=== PATIENT | female | born 1950 | race Caucasian/White ===

== ENCOUNTER 2019-09-12 21:00 | Inpatient (IN) ==
--- NOTE | 2019-09-12 20:18 | PROVIDER DOCUMENTATION ---
HPI-General Adult - General Stated Complaint: Diarrhea,SOB,lethargic Time Seen by Provider: 09/12/19 19:45 Source: patient Allergies/Adverse Reactions: Patient Allergies Allergy/AdvReac Type Severity Reaction Status Date / Time No Known Allergies Allergy Verified 09/12/19 20:58 Home Medications: Home Medication List Medication Instructions Recorded Confirmed Last Taken Type Amlodipine Besylate 10 mg PO DAILY 02/02/17 09/13/19 09/11/19 History Clonidine HCl 0.1 mg PO BID 02/02/17 09/13/19 09/11/19 History Glimepiride 4 mg PO DAILY 02/02/17 09/13/19 09/11/19 History Losartan [Cozaar] 50 mg PO DAILY 02/02/17 09/13/19 09/11/19 History Pioglitazone [Actos] 30 mg PO DAILY 02/02/17 09/13/19 09/11/19 History Spironolactone 25 mg PO BID 02/02/17 09/13/19 09/11/19 History Glucosa Rodriguez 2Kcl/Chondroitin Rodriguez 1 cap PO DAILY 09/23/18 09/13/19 09/11/19 History [Glucosamine & Chondroitin Cap] Carvedilol [Coreg] 12.5 mg PO BID 30 Days #60 tab 09/28/18 09/13/19 09/11/19 Rx Folic Acid 1 mg PO BID 30 Days #60 tab 09/28/18 09/13/19 09/11/19 Rx Levothyroxine [Synthroid] 75 microgm PO DAILY@0700 30 Days 09/28/18 09/13/19 09/11/19 Rx #30 tab Nystatin Powder [Mycostatin Powder] 1 applicatn TOP BID 30 Days #1 09/28/18 09/13/19 09/11/19 Rx bottle Bumetanide 2 mg PO DAILY 09/13/19 09/13/19 Unknown History Warfarin [Coumadin] 5 mg PO QHS 09/13/19 09/13/19 Unknown History Cephalexin [Keflex] 500 mg PO BID #10 cap 09/18/19 Unknown Rx - History of Present Illness -Gen Adult Nature of Presenting Problems: 69 YOF PRESENTS WITH C/O GENERALIZED WEAKNESS, DIARRHEA, INCREASED SOB SINCE THE DAY BEFORE . SHE DENIES FEVER, CHILLS, VOMITING. Location of Pain/Injury: reports: none Pain Radiation: reports: no radiation Quality of Pain: reports: none Severity: reports: moderate Onset/Duration: reports: 1 week ago, other (SINCE 09/05) Timing: reports: still present Context/Activities at Onset: reports: none Modifying Factors: improves with: nothing Associated Symptoms: reports: diarrhea, loss of appetite, malaise, nausea Similar Symptoms Previously?: No Recently seen or treated by another doctor?: No Review of Systems - Adult - REVIEW OF SYSTEMS - ADULT Constitutional: reports: no symptoms reported. denies: see HPI, chills, fever, fatique, night sweats, weight gain, weight loss, other Eyes: reports: no symptoms reported. denies: see HPI, discharge, dry eyes, decreased vision, blurred vision, double vision, eye pain, redness, other Ears, Nose, Mouth & Throat: reports: no symptoms reported. denies: see HPI, ear discharge, ear pain, hearing loss, tinnitus, epistaxis, sinus problem, nose pain, loose teeth, mouth/dental pain, mouth swelling, hoarseness, throat pain, throat swelling, other Cardiovascular: reports: no symptoms reported. denies: see HPI, chest pain, edema, heart murmur, irregular heart rate, orthopnea, palpitations, poor circulation, PND, syncope, other Respiratory: reports: cough, shortness of breath, wheezing. denies: no symptoms reported, see HPI, chronic cough, dyspnea on exertion, excessive sputum production, hemoptysis, pleurisy, other Gastrointestinal: reports: diarrhea, nausea. denies: no symptoms reported, see HPI, abdominal pain, hematemesis, constipation, difficulty swallowing, frequent heartburn, poor appetite, rectal bleeding, vomiting, other Genitourinary: reports: no symptoms reported. denies: see HPI, dysuria, discharge, frequency, flank pain, frequent UTI's, hematuria, hesitency, incontinence, urinary retention, urgency, other Musculoskeletal: reports: muscle weakness. denies: no symptoms reported, see HPI, bone pain, back pain, frequent leg cramps, joint pain, joint swelling, muscle aches, neck pain, other Integumentary: reports: no symptoms reported. denies: see HPI, hives, hair loss, itching, mole changes, nail changes, rash, skin sores/ulcer, skin thickening, other Neurological: reports: no symptoms reported. denies: see HPI, ataxia, dizziness/vertigo, headache/migraines, loss of balance, numbness, paresthesia, seizure, slurred speech, syncope, tremors, other Psychiatric: reports: no symptoms reported. denies: see HPI, anxiety, anti- depressant use, alcohol/drug dependence, depression, emotional problems, insomnia, panic attacks, suicidal thoughts, other Endocrine: reports: no symptoms reported. denies: see HPI, change in skin pigment, excessive sweating, goiter, cold intolerance, heat intolerance, increased hunger, increased thirst, polyuria, other Hematologic/Lymphatic: reports: no symptoms reported. denies: see HPI, blood clots, easy bruising, low blood count, lymphedema, prolonged bleeding, swollen lymph nodes, transfusions, other Allergic/Immunologic: reports: no symptoms reported. denies: see HPI, allergic reactions, allergic rhinitis, asthma, eczema, food allergy, frequent infections, hay fever, hives, positive PPD, urticaria, other Past History - Adult - PAST MEDICAL HISTORY-ADULT Review of Records: reports: Social history reviewed & non-contributory. Major Childhood Illnesses: reports: denies history Cardiovascular: reports: CHF, HTN Respiratory: reports: denies history Gastrointestinal: reports: denies history Obstetrical/Gynecological: reports: denies history Genitourinary: reports: denies history Musculoskeletal: reports: denies history Neurological: reports: CVA Endocrine/Immune: reports: Diabetes, thyroid disorder Other Conditions: reports: denies history - PRIOR SURGERIES/PROCEDURES Surgical/Procedure History: reports: reviewed, not pertinent - IMMUNIZATION STATUS Childhood Immunizations: See Nurse Assessment Flu Vaccine: See Nurse Assessment - FAMILY HISTORY Family History: reviewed, not pertinent Physical Exam-General - PHYSICAL EXAM-ADULT Initial Vital Signs Reviewed: Yes - CONSTITUTIONAL General Appearance: alert, no apparent distress - EYES Eyes: PERRL/EOMI, pink conjunctivae - HEAD, EARS, NOSE, MOUTH & THROAT HENMT: normocephalic/atraumatic, moist mucous membranes, normal ENT inspection - NECK Neck: non-tender, full range of motion, supple - RESPIRATORY Respiratory: chest non-tender, crackles, wheezing (MILD). negative: lungs clear, normal breath sounds - CARDIOVASCULAR Cardiovascular: normal peripheral pulses, no edema, no gallop, bradycardia - GASTROINTESTINAL (ABDOMEN) Abdominal Exam: normal bowel sounds, soft, no pulsatile mass, tenderness (GENERALIZED) - LYMPHATIC Lymphatic: no adenopathy - MUSCULOSKELETAL Back Exam: normal inspection, no CVA tenderness Extremity: normal range of motion, non-tender, pedal edema (BLE EDEMA TO KNEES +3) - SKIN Integumentary: normal color, normal turgor, warm/dry - NEUROLOGIC Neurologic: grossly normal - PSYCHIATRIC Psych/Mental Status: normal mood/affect, oriented x 3 Progress - PLAN OF CARE/RESULTS Progress/Plan/Lab Results: Vital Signs - 8 hr 09/12/19 19:28 Pulse Rate 57 L Respiratory Rate 22 Blood Pressure 147/77 O2 Sat by Pulse Oximetry 95 Orders Category Date Time Status Saline Loc NOW Care 09/12/19 20:12 Active cxr [CHEST-PORTABLE] [RAD] Stat Exams 09/12/19 19:30 Ordered CBC WITH ELECTRONIC DIFF [HEME] Stat Lab 09/12/19 19:30 Uncollected COMPREHENSIVE METABOLIC PANEL [CHEM] Stat Lab 09/12/19 19:30 Uncollected Flu [INFLUENZA SCREEN PL] Stat Lab 09/12/19 20:13 Uncollected PRO B-NATRIURETIC PEPTIDE Stat Lab 09/12/19 20:12 Uncollected PROTIME WITH INR [COAG] Stat Lab 09/12/19 20:12 Uncollected PTT [COAG] Stat Lab 09/12/19 20:12 Uncollected TROPONIN T Stat Lab 09/12/19 19:31 Ordered UA NIMS W/REFLEX CULT [URINALYSIS] Stat Lab 09/12/19 20:13 Uncollected EKG [EKG] Stat Ther 09/12/19 19:30 Ordered 2105: PT HAS BEEN ASSESSED BY DR COOPER WHO ORDERED BIPAP AND ADDITIONAL LABS 2335: D/W SISTER WHO IS UNAWARE IF THE PATIENT HAS ADVANCED DIRECTIVES, HER BROTHER HAS POA AND IS AWAY ON BUSINESS. SHE REPORTS SHE WILL CALL HIM TOMORROW REGARDING THIS. 0052: DR COOPER IS AWARE AND FOLLOWING PATIENT SHE AWAITS ICU ROOM AT . I personally evaluated the pt and reevaluated her multiple times overnight, as she was boarded in the [place] ED. I agree with the plan of care as stated by CELI Haywood. She remained clinically stable under my care. She did complain of a headache mid morning that she states was related to positioning of her neck. She was adjusted in bed and appeared more comfortable and rested comfortably following. Result Diagrams: 09/17/19 06:50 09/18/19 06:48 - XRAY 1 XRAY Study: Chest Impression: See EMR Report (PULMONARY EDEMA, CARDIOMEGALLY-DR COOPER) - CONSULTS/PCP/HOSPITALIST Notification #1 *Consult/PCP/Hospitalist*: DR. GIL Time Discussed: 23:03 Reason/Comments: ADMIT TO ICU Consult Disposition: Admit Departure - Departure Date of Disposition Decision: 09/12/19 Time of Disposition Decision: 23:03 DIAGNOSIS: Weakness, Coagulopathy CHF (congestive heart failure) Qualifiers: Heart failure type: unspecified Heart failure chronicity: unspecified Qualified Code(s): I50.9 - Heart failure, unspecified UTI (urinary tract infection) Qualifiers: Urinary tract infection type: site unspecified Hematuria presence: without hematuria Qualified Code(s): N39.0 - Urinary tract infection, site not specified Disposition: HOME 01 Certified Medical Emergency: Emergent Condition: Fair - Critical Care Note This patient required my direct & personal management of CC.: Yes Total Time (mins): 64 Critical Care Statement: This patient required my direct personal management to treat or rule out processes, the absence of which, could potentiallly result in sudden, clinically significant life or limb threatening deterioration. Attestation - Physician/ MELVIN Attestation Patient care was provided by Advanced Practice Provider:: Yes Advanced Practice Provider:: Belén Haywood Advanced Practice Provider documentation review:: The Mid-level provider doc umentation, treatment plan and medical decision making was reviewed by the physician who agrees with all treatment and medical decision making by the [facility]. The physician spent face to face time with patient:: Yes Advanced Practice Provider documentation review:: Supervising physician onsite and consulted in the evaluation and care of this patient. The physician did have a face to face encounter with the patient.
[~2019-09-12 21:00] MED LIST: DUONEB (A & A) INH ONE
[2019-09-12 21:02] LABS: BE -0.2 mmoll (-3.0-3.0); BLOOD TYPE ARTERIAL; HCO3-(ACT) 24.6 mmoll (20.0-26.0); O2(CT) 9.7 mL/dL (15.0-23.0); PCO2(98.6) 41 mmHg (35-45); SAMPLE BLOOD; SAO2 85.1 % (95.0-100.0); THB 8.3 g/dL (11.5-17.4); pH(98.6) 7.39 (7.35-7.45)
[2019-09-12 21:37] LABS: PTT 67.2 Seconds (22.3-41.8)
[2019-09-12 21:41] LABS: ALBUMIN 3.4 g/dL (3.5-5.0); CALCIUM 8.6 mg/dL (8.8-10.2); CREATININE 1.5 mg/dL (0.5-0.9); POTASSIUM 4.3 mmol/L (3.5-5.1); TOTAL BILIRUBIN 0.5 mg/dL (0.20-1.00); TOTAL PROTEIN 6.8 g/dL (6.3-8.3)
[2019-09-12 21:59] LABS: INFLUENZA A NEGATIVE (NEGATIVE); INFLUENZA B NEGATIVE (NEGATIVE)
[2019-09-12 21:59] LABS: BASO# 0.03 X1000 (0.0-0.2); BASO% 0.6 % (0.0-0.8); EOS# 0.18 X1000 (0.0-0.7); EOS% 3.3 % (0.0-10.0); HEMOGLOBIN 7.3 g/dL (12.0-16.0); IMM GRAN# 0.03 X1000 (0.0-0.04); IMM GRAN% 0.6 % (0.0-0.5); LYMPH# 0.82 X1000 (1.2-3.4); LYMPH% 15.2 % (20.5-51.1); MCH 28.6 PG (27-31); MCHC 29.2 g/dL (33-37); MONO# 0.55 X1000 (0.11-0.59); MONO% 10.2 % (1.7-9.3); MPV 9.2 FL (7.4-10.4); NEUT% 70.1 % (42.2-75.2); PLT 225 X1000 (130-400); RBC 2.55 XMIL (4.2-5.4); RDW 15.8 % (11.5-14.5); WBC 5.41 X1000 (4.8-10.8)
[2019-09-12] MEDS ORDERED: LASIX IV ONE (22:03)
[2019-09-12 22:10] LABS: INR 4.48; PROTIME 45.5 Seconds (11.0-16.0)
[2019-09-12 22:22] LABS: URINE SOURCE CATH
[2019-09-12 22:26] LABS: BILIRUBIN URINE NEGATIVE (NEGATIVE); BLOOD URINE SMALL (NEGATIVE); COLOR YELLOW; GLUCOSE URINE NEGATIVE (NEGATIVE); KETONE URINE NEGATIVE (NEGATIVE); LEUKOCYTES URINE MODERATE (NEGATIVE); NITRITE URINE POSITIVE (NEGATIVE); PH URINE 5.5; PROTEIN URINE 100 mg/dL (NEGATIVE); SP GRAVITY URINE 1.024; TURBIDITY URINE HAZY (CLEAR); UR EPITHELIAL CELLS <10 /HPF (<10); URINE BACTERIA 4+ /HPF; URINE RBC <10 /HPF (<10); URINE WBC TNTC /HPF (<10); UROBILINOGEN URINE NORMAL (NORMAL)
[2019-09-12] MEDS ORDERED: LEVAQUIN 500 MG/D5W 500 MG/100 ML IVPB IV ONE (22:27)
[2019-09-12 22:51] LABS: ALLEN TEST YES; MODALITY CANNULA
[2019-09-12 23:32] LABS: OCCULT BLOOD 1 NEGATIVE (NEGATIVE)
--- NOTE | 2019-09-13 00:27 | EKG Report ---
Test Performed on : 09/12/2019 9:49:49 PM Test Reason : SOB Blood Pressure : / mmHG Vent. Rate : 048 BPM Atrial Rate : 000 BPM P-R Int : 000 ms QRS Dur : 086 ms QT Int : 510 ms P-R-T Axes : 121 084 037 degrees QTc Int : 455 ms Undetermined rhythm Nonspecific ST abnormality Abnormal ECG When compared with ECG of 26-SEP-2018 07:27, Current undetermined rhythm precludes rhythm comparison, needs review Criteria for Septal infarct are no longer present Nonspecific T wave abnormality, worse in Inferior leads Nonspecific T wave abnormality no longer evident in Anterior leads Unconfirmed Result
[2019-09-13] MEDS ORDERED: TYLENOL PO ONE (02:27)
[2019-09-13 06:47] LABS: ALBUMIN 3.2 g/dL (3.5-5.0); CALCIUM 8.5 mg/dL (8.8-10.2); CREATININE 1.5 mg/dL (0.5-0.9); POTASSIUM 4.5 mmol/L (3.5-5.1); TOTAL BILIRUBIN 0.5 mg/dL (0.20-1.00); TOTAL PROTEIN 6.6 g/dL (6.3-8.3)
[2019-09-13 07:13] LABS: BASO# 0.03 X1000 (0.0-0.2); BASO% 0.5 % (0.0-0.8); EOS# 0.13 X1000 (0.0-0.7); EOS% 2.3 % (0.0-10.0); HEMATOCRIT 24.9 % (37.0-47.0); HEMOGLOBIN 7.1 g/dL (12.0-16.0); IMM GRAN# 0.02 X1000 (0.0-0.04); IMM GRAN% 0.4 % (0.0-0.5); LYMPH# 0.66 X1000 (1.2-3.4); LYMPH% 11.6 % (20.5-51.1); MCH 28.2 PG (27-31); MCHC 28.5 g/dL (33-37); MCV 98.8 FL (81-99); MONO# 0.72 X1000 (0.11-0.59); MONO% 12.6 % (1.7-9.3); MPV 8.8 FL (7.4-10.4); NEUT# 4.14 X1000 (1.4-6.5); NEUT% 72.6 % (42.2-75.2); PLT 212 X1000 (130-400); RBC 2.52 XMIL (4.2-5.4)
[2019-09-13 08:32] LABS: IRON SATURATION 16 %; TIBC 256 ug/dL; TOTAL IRON 41 ug/dL (49-151); UNBOUND IRON 215 ug/dL (112-346)
--- NOTE | 2019-09-13 08:37 | Diag Imaging Result Doc PS360 ---
EXAM: CHEST-PORTABLE - 09/12/2019 HISTORY: SOB TECHNIQUE: Portable chest one view COMPARISON: 09/28/2018 chest two views FINDINGS: Heart size appears enlarged and mildly increased compared to prior. There is mild prominence of vascular/interstitial markings. There is mild infiltrate or edema at the right base. There is a possible small right pleural effusion. There is no evidence of pneumothorax. IMPRESSION: Cardiomegaly with mild congestive heart failure. Electronically signed by Brennan Corbett 09/13/2019 8:35 AM
[2019-09-13] MEDS: LASIX IV SCH ×2 (08:52→21:01)
[2019-09-13] MEDS: ROCEPHIN 1 GM in NS 50 ML IV SCH (08:52)
[2019-09-13] MEDS ORDERED: NS 500 ML IV ONE (10:15)
[2019-09-13 10:27] LABS: BLOOD TYPE ARTERIAL; HCO3-(ACT) 26.4 mmoll (20.0-26.0); METHB 1.2 % (0.0-1.5); O2(CT) 10.6 mL/dL (15.0-23.0); PCO2(98.6) 40 mmHg (35-45); PO2(98.6) 71 mmHg (60-100); SAMPLE BLOOD; SAO2 95.4 % (95.0-100.0); SRATE 14 BPM; pH(98.6) 7.43 (7.35-7.45)
[2019-09-13 10:28] LABS: MODALITY BI PAP
[2019-09-13 10:29] LABS: ALLEN TEST NO
[2019-09-13 10:57] LABS: INR 5.13; PROTIME 50.7 Seconds (11.0-16.0)
[2019-09-13] MEDS ORDERED: VITAMIN K SUBQ ONE (10:59)
[2019-09-13] MEDS: HUMULIN R SUBQ SCH ×3 (11:00→21:47)
[2019-09-13] MEDS: DUONEB (A & A) INH SCH ×4 (11:33→23:20)
[2019-09-13] MEDS ORDERED: VITAMIN K ONE (12:05)
[2019-09-13 12:13] LABS: CALCIUM 8.6 mg/dL (8.8-10.2); CREATININE 1.4 mg/dL (0.5-0.9); POTASSIUM 4.8 mmol/L (3.5-5.1)
[2019-09-13] MEDS ORDERED: D50W SYRINGE IV ONE ×2 (12:21→21:39)
[2019-09-13] MEDS ORDERED: D50W SYRINGE ONE (12:22)
[2019-09-13 14:27] LABS: FERRITIN 80 ng/mL (13-150)
--- NOTE | 2019-09-13 15:09 | HISTORY AND PHYSICAL ---
PRIMARY CARE PHYSICIAN: Listed as none. CHIEF COMPLAINT: Generalized weakness, increased shortness of breath and diarrhea that began a little over a week ago on Tuesday and progressively worsened. HISTORY OF PRESENTING ILLNESS: This is a 69-year-old female who presents to [facility] ER with complaints of generalized weakness, increased shortness of breath, and diarrhea. All that began the day before , which was last Tuesday the 05 of September. When she arrived to the emergency room approximately 45 minutes after arrival, she dropped her O2 saturation from 95% on 4 L down to 86% on 4 L. We did an ABG that showed a pH of 7.39, pCO2 41, PO2 48, and bicarb 24.6, and this was on 4 L via nasal cannula. She was placed on a Venturi mask initially and then had to be changed over to BiPAP and is now saturating 98% on BiPAP. Her hemoglobin and hematocrit on arrival were 7.3 and 25. Her stool for occult blood was negative. Her PT and INR were elevated at 45.5 and 4.48. She is on Coumadin 5 mg p.o. q hour of sleep and that of course will be held at this time. She does take Eliquis. Her BUN was 33, creatinine of 1.5 and she is known to have chronic kidney disease stage 3 and is actually a little better than her baseline, which appears to be around 1.8 to 2. ProBNP was 838. Urinalysis showed positive nitrites, moderate leukocytes, 4+ bacteria. Her chest x-ray showed cardiomegaly with mild congestive heart failure, so she will be admitted to the intensive care unit at [facility] for further evaluation and treatment. PAST MEDICAL HISTORY: CHF, hypertension, CVA, diabetes type 2, hypothyroidism, chronic kidney disease stage 2 to 3, and severe osteoarthritis of her knees. PAST SURGICAL HISTORY: None. FAMILY HISTORY: Reviewed and noncontributory. SOCIAL HISTORY: She currently lives with family. Denies any tobacco, alcohol or illicit drug use. ALLERGIES: She has no known drug allergies. HOME MEDICATIONS: Will need to obtain a current list, reconcile review and restart as appropriate. We will place an order for nursing to update and confirm home medications. LABORATORY DATA: Showed a white blood cell count of 5.41, hemoglobin 7.3, hematocrit 25, and platelets 225,000. PT and INR of 45.5 and 4.48. ABG with a pH of 7.39, pCO2 41, PO2 48, and bicarb 24.6, and this was on 4 L via nasal cannula when she first arrived. Sodium 139, potassium 4.5, chloride 106, CO2 22, BUN of 33, creatinine 1.5, glucose 120, proBNP of 838. Urinalysis with positive nitrites, moderate leukocytes, 4+ bacteria, negative stool for occult blood. Influenza A and B were both negative. Chest x-ray showed cardiomegaly with mild congestive heart failure. REVIEW OF SYSTEMS: She denied any fever, chills, blurred vision, dizziness. She did have generalized weakness, increased shortness of breath. Denied any abdominal pain constipation. She was positive for diarrhea and denied any burning or hurting with urination. PHYSICAL EXAMINATION: On arrival she had a temperature of 94.2 degrees, pulse 57, respirations 22, blood pressure 147/77 saturating 95% on 4 L via nasal cannula. Approximately 45 minutes after arriving she did drop her O2 saturation to 86% on 4 L via nasal cannula. Temp is 95.1 degrees this morning at 6 a.m. GENERAL: This is a 69-year-old female lying in the bed, answers questions appropriately. HEENT: Normocephalic, atraumatic. Normal ENT inspection. Oropharynx and nares are clear. EYES: Pupils are equal, round, reactive to light and accommodation. Extraocular movements are intact. NECK: Normal inspection normal range of motion. LUNGS: With some mild wheezing and crackles throughout lung shin. Equal lung expansion. Chest wall movement noted. Is currently using BiPAP. HEART: Regular rate and rhythm. No murmurs, rubs, or gallops. ABDOMEN: Soft, nontender, nondistended. Bowel sounds are present x4 quadrants. MUSCULOSKELETAL: Normal inspection. She does have some bilateral lower extremity edema 3+ up to her knees. NEUROLOGICAL: The cranial nerves 2-12 appear grossly intact. ASSESSMENT: 1. Acute congestive heart failure exacerbation. 2. Acute respiratory failure. 3. Urinary tract infection. 4. Coagulopathy secondary to warfarin use. 5. Hypothermia. PLAN: She will be admitted to the intensive care unit at [facility], placed on telemetry, placed on BiPAP. We will consult Cardiology, do an echocardiogram today. We are going to do iron studies as I suspect she is probably iron deficient, do DuoNeb q.4 hours Lasix 40 mg IV q.12, Rocephin 1 gram IV q.24. Again, we will hold her Coumadin. We will recheck a PT and INR daily. Further orders after seen by attending and by senior wind energy consultant and we will recheck a CBC, BMP in the a.m. Dictated by ZONIA Jara for Max Beth MD cc: ZONIA Jara MD Lloyd James, MD Pt seen and examined with gas plant dispatcher; pt has respiratory failure; and chf, and uti/sepsis; will admit to icu at [facility]; pt has rales on exam, abdomen is soft, nontender., agree with above plan as described, will consult pulmonary MTDD
--- NOTE | 2019-09-13 15:40 | ECHO REPORT ---
ORDER DATE: 09/13/2019 INTERPRETING PHYSICIAN: Dr. Grayson Antonio ECHOCARDIOGRAPHIC MEASUREMENTS: 1. Interventricular septum: 1.2 cm. 2. Left ventricular posterior wall: 1.2 cm. 3. Diastolic diameter: 5.8 cm. 4. Left atrium: 5 cm. 5. Aorta: 3.64 cm. SUMMARY OF THE 2-DIMENSIONAL IMAGIN. Technically suboptimal study. 2. Poor acoustic window. 3. Aortic valve leaflets were trileaflet. 4. Pulmonic valve was normal. 5. There is left atrial enlargement. 6. There is mitral annular calcification. 7. There is mild mitral regurgitation. 8. Peak velocity across the aortic valve less than 2 meters per second. 9. There is no aortic stenosis or regurgitation. 10. There is mild tricuspid regurgitation. 11. Peak velocity across the tricuspid valve was 3 meters per second. 12. Pulmonary artery systolic pressure 46 to 50 mmHg. 13. Normal left ventricular cavity size. 14. Endocardium not well visualized in all views. 15. Estimated ejection fraction of 50%. 16. Would recommend MUGA scan or Optison to better delineate left ventricular systolic function. 17. There is no pericardial effusion. cc: MD Briana Casey CRNP Lloyd James, MD
[2019-09-13] MEDS ORDERED: VANCOMYCIN IV PER PHARMACY MISC SCH (15:45)
--- NOTE | 2019-09-13 16:33 | HISTORY AND PHYSICAL ---
ADDENDUM TO HISTORY AND PHYSICAL: CHIEF COMPLAINT: Shortness of breath, diarrhea, weakness. HISTORY: She is a patient with CHF and morbid obesity. She came in hypoxic. She is now on BiPAP. EXAMINATION: On exam she does have rales and rhonchi. Her chest x-ray looked more like pulmonary edema and cardiomegaly. She has pretty significant anemia. She is coagulopathic and with an acute kidney injury. Also evidence of UTI, possible sepsis. PROBLEM LIST: 1. Acute respiratory failure. We are going to put her on BiPAP, diurese her, probably get a pulmonary consult as well when she is transferred to the main campus. 2. Anemia coagulopathy. I am going to give her a little bit of vitamin K. It does not look like she is actively bleeding but she definitely has coagulopathy and symptomatic anemia with hypoxia so I am going to go ahead and transfuse her 1 unit. 3. Urinary tract infection. We will cover with antibiotics and follow closely. 4. Congestive heart failure. Repeat echo. Continue diuresis. Probably do serial enzymes and monitor. 5. Diabetes. We will follow her blood sugars. Continue sliding scale. Check hemoglobin A1c. 6. The patient will need to be monitored in the ICU due to her hypoxic respiratory failure. CRITICAL CARE TIME: 32 minute critical care time. Patient seen with Briana Lui. cc: MD Tobias Palmer MD
[2019-09-13] MEDS ORDERED: VANCOMYCIN 2,500 MG in NS 500 ML IV ONE (17:00)
[2019-09-13] MEDS ORDERED: COUMADIN PO SCH (21:00)
[2019-09-13] MEDS: COREG PO SCH (21:01)
[2019-09-13] MEDS: CATAPRES PO SCH (21:01)
[2019-09-13] MEDS: FOLIC ACID PO SCH (21:01)
[2019-09-13] MEDS: ALDACTONE PO SCH (21:01)
[2019-09-13 22:31] LABS: CK-MB 4.58 ng/mL (0.0-5.0)
[2019-09-14] MEDS: TYLENOL PO PRN ×2 (00:58→23:56)
[2019-09-14] MEDS: DUONEB (A & A) INH SCH ×6 (03:26→23:25)
[2019-09-14 05:16] LABS: INR 3.7; PROTIME 37.9 Seconds (11.0-16.0)
[2019-09-14 05:19] LABS: BASO# 0.05 X1000 (0.0-0.2); BASO% 0.8 % (0.0-0.8); EOS# 0.27 X1000 (0.0-0.7); EOS% 4.4 % (0.0-10.0); HEMATOCRIT 29.4 % (37.0-47.0); HEMOGLOBIN 8.5 g/dL (12.0-16.0); IMM GRAN# 0.03 X1000 (0.0-0.04); IMM GRAN% 0.5 % (0.0-0.5); LYMPH# 1.01 X1000 (1.2-3.4); LYMPH% 16.6 % (20.5-51.1); MCH 29.2 PG (27-31); MCHC 28.9 g/dL (33-37); MONO% 14.8 % (1.7-9.3); MPV 9.2 FL (7.4-10.4); NEUT# 3.84 X1000 (1.4-6.5); NEUT% 62.9 % (42.2-75.2); PLT 218 X1000 (130-400); RBC 2.91 XMIL (4.2-5.4); RDW 19.8 % (11.5-14.5)
[2019-09-14 05:46] LABS: CALCIUM 9.2 mg/dL (8.8-10.2); CREATININE 1.6 mg/dL (0.5-0.9); POTASSIUM 4.6 mmol/L (3.5-5.1)
[2019-09-14] MEDS: SYNTHROID PO SCH (06:26)
[2019-09-14] MEDS: HUMULIN R SUBQ SCH ×4 (06:27→20:59)
--- NOTE | 2019-09-14 07:17 | CONSULTATION ---
DATE OF CONSULTATION: 09/13/2019 REQUESTING PROVIDER: Dr. Samson Beth. REASON FOR CONSULTATION: Respiratory failure. HISTORY OF PRESENT ILLNESS: This is a 69-year-old female with a medical history of morbid obesity, congestive heart failure, diabetes mellitus type 2, essential hypertension, CVA, hypothyroidism, chronic kidney disease, and severe osteoarthritis of the knees. She presented to the [place] ER yesterday with generalized weakness, worsening shortness of breath and diarrhea. Upon arrival to the ER, she also did desaturated with oxygen saturation 86% on nasal cannula at 4 liters. Stat ABG showed PO2 48%. She was put on Venturi mask and eventually BiPAP. A chest x- ray showed cardiomegaly with mild congestive heart failure and a possible small right pleural effusion. Blood work shows anemia with hemoglobin 7.38, elevated proBNP of 838. Urinalysis showed positive to nitrate with moderate leukocyte but the urine culture is pending. Echocardiogram this morning showed estimated ejection fraction of 50%. She has been admitted to the ICU in our facility with acute congestive heart failure exacerbation, acute hypoxic respiratory failure, urinary tract infection and hypothermia. The patient currently is lying in bed. She just arrived to the ICU from the [place]. She is on BiPAP mask with no acute distress noted. Oxygen saturation is stable around 96%. She reports some dry mouth and sore throat and she is asking for food and drink. There is no family at the bedside. PAST MEDICAL HISTORY: 1. Morbid obesity. 2. Congestive heart failure. 3. Hypertension. 4. Diabetes mellitus type 2. 5. History of CVA, on Eliquis at home. 6. Hypothyroidism. 7. Chronic kidney disease. 8. Severe osteoarthritis of the knee. 9. History of GI bleeding with gastric ulcer secondary to NSAID overuse. PAST SURGICAL HISTORY: None. SOCIAL HISTORY: The patient is and lives at home with her family. She has no history of alcohol, tobacco, or illicit drug use. FAMILY HISTORY: Positive for cancer, diabetes. REVIEW OF SYSTEMS: Difficult to be obtained as patient is on a BiPAP mask with dry mouth and sore throat. She denies any pain. She denies any chest pain or abdominal pain currently. PHYSICAL EXAMINATION: Vital Signs: Temperature 97.1 degrees, blood pressure 126/70, pulse 57, respiratory rate 19, oxygen saturation 95% on a BiPAP mask with FiO2 45% and pressure 40/6. General: Morbidly obese, lying in bed with BiPAP mask on, chronically ill- appearing. No acute distress noted. HEENT: Atraumatic, normocephalic. Trachea midline. Mucosa pink and slightly dry. Respiratory: Even and unlabored. Symmetrical excursion. Auscultation revealed inspiratory crackles bibasilarly and diminished breathing sounds bilaterally. Cardiovascular: Regular rate and rhythm. Gastrointestinal: Protuberant, soft, nontender. Normoactive bowel sounds in all 4 quadrants. Extremities: Bilateral lower extremity pitting edema 1+. No cyanosis no clubbing. Dorsalis pedis diminished bilaterally. Neurologic: Alert and oriented x3. Speech fluent. Follows commands. LAB DATA: White blood cell 5.70, hemoglobin 7.1, hematocrit 24.9, platelets 212,000. Sodium 139, potassium 4.3, chloride 107, carbon dioxide 22, BUN 33, creatinine 1.5, glucose 140. ABG, pH 7.43, pCO2 of 40, PO2 71, carbon dioxide 26.4, base excess 2.0, and oxyhemoglobin 93.0. ASSESSMENT: This is a 69-year-old female with a medical history of morbid obesity, congestive heart failure, hypertension, diabetes mellitus type 2, CVA, hypothyroidism, chronic kidney disease, and severe osteoarthritis of the knees. She has been admitted to the ICU with acute congestive heart failure exacerbation, acute hypoxic respiratory failure, urinary tract infection, 1. Acute hypoxic respiratory failure. 2. Congestive heart failure exacerbation. 3. Anemia, likely a component of chronic disease. 4. Urinary tract infection. PLAN: 1. Continue BiPAP as needed. 2. Continue diuretic as needed. Continue bronchodilators. 3. Consider blood transfusion if indicated. 4. Follow up with ABG, CBC, BMP, blood culture, urine culture, and chest x-ray. 5. Further recommendations pending hospital course. Thank you for the courtesy of this consult. Dictated by ZONIA Bah for Jacob Flores MD cc: ZONIA Bah MD Lloyd James, MD [facility]
[2019-09-14] MEDS: NORVASC PO SCH (08:27)
[2019-09-14] MEDS: LASIX IV SCH ×2 (08:27→20:55)
[2019-09-14] MEDS: FOLIC ACID PO SCH ×2 (08:27→20:58)
[2019-09-14] MEDS: COREG PO SCH ×2 (08:27→20:57)
[2019-09-14] MEDS: CATAPRES PO SCH ×2 (08:27→20:57)
[2019-09-14] MEDS: ALDACTONE PO SCH ×2 (08:27→20:58)
[2019-09-14] MEDS: COZAAR PO SCH (08:27)
[2019-09-14] MEDS: AMARYL PO SCH ×2 (08:28→09:03)
[2019-09-14] MEDS ORDERED: ACTOS PO SCH (09:00)
[2019-09-14] MEDS: GLUCOSAMINE 500 MG/CHONDROITIN 400 MG PO SCH (09:02)
[2019-09-14 10:23] LABS: ALLEN TEST YES; BE 3.1 mmoll (-3.0-3.0); BLOOD TYPE ARTERIAL; HCO3-(ACT) 27.3 mmoll (20.0-26.0); METHB 0.1 % (0.0-1.5); O2(CT) 10.7 mL/dL (15.0-23.0); O2HB 91.6 % (95.0-99.0); PCO2(98.6) 43 mmHg (35-45); PO2(98.6) 57 mmHg (60-100); SAMPLE BLOOD; SAO2 92.8 % (95.0-100.0); THB 8.3 g/dL (11.5-17.4); pH(98.6) 7.42 (7.35-7.45)
[2019-09-14 10:29] LABS: MODALITY VENTIMASK
--- NOTE | 2019-09-14 10:36 | CARDIOLOGY CONSULTATION ---
DATE: 09/14/2019 REASON FOR CONSULTATION: Shortness of breath. Congestive heart failure. HISTORY OF PRESENT ILLNESS: Ms. Lazcano is a 69-year-old white female who presents to [facility] with complaints of shortness of breath. She reports this has been going on for roughly 2 weeks. She had a bout of diarrhea a few weeks ago and then reportedly went to [place] for Thanksgiving. She had quite a bit of dietary sodium indiscretion and has progressively become more short of breath with increasing lower extremity edema and 2 pillow orthopnea. She reports no recent coughs or fevers. She reports compliance with her medications. PAST MEDICAL HISTORY: Significant for 1. Cor pulmonale. 2. Atrial fibrillation. Apparent onset in September 2018. She is maintained on Coumadin for this. 3. History of CVA. 4. History of apparent intracranial hemorrhage with intraventricular hemorrhage. This was in 2011 in [place]. Per previous notes this appeared to have been a hemorrhagic conversion of an ischemic CVA. 5. Diabetes. 6. Hypothyroidism. 7. Chronic kidney disease. 8. Osteoarthritis. SOCIAL HISTORY: No tobacco, alcohol or illicit drugs. Notably her around 5 months ago due to an DE. REVIEW OF SYSTEMS: Ten system review of systems is negative except for those mentioned in HPI. PHYSICAL EXAMINATION: Vital Signs: She is afebrile. Her heart rate is in the 60s to 70s. Her most recent blood pressure is 166/75. Her I's and O's have been negative for a total of 2.5 L. General: She is in no acute distress. Morbidly obese. HEENT: Oropharynx is moist. Poor dentition. Eye examination is pink conjunctivae. White sclerae. Neck: Examination shows no obvious thyromegaly or thyroid tenderness. Cardiovascular: She sounds to be in a regular rate and rhythm. She has no obvious murmurs. She has no S3. She has 2+ bilateral lower extremity edema. Chest: Distant. She has coarse breath sounds diffusely. She has no increased work of breathing. Abdomen: Soft, nontender, nondistended. She has no obvious organomegaly. Skin: Warm and dry throughout without any rashes. She has multiple ecchymoses on her bilateral upper extremities. Neurological: She is moving all extremities well. PERTINENT DATA: Her echo yesterday showed a mild left ventricular hypertrophy with some dilatation of the left ventricle. Repeat of the echo today with [employer] shows a dilated right ventricle with a preserved ejection fraction of greater than 55%. Mostly likely this represents findings consistent with her cor pulmonale. Her chest x-ray shows cardiomegaly with suggestion of congestive heart failure. White count is 6, hematocrit 29, platelet count is 218,000. Her INR is 3.7. Her sodium is 142, potassium 4.6, BUN 29, creatinine is 1.6. This does not appear far off her baseline. She has multiple creatinines in the mid 1's to 2.0 range. Her cardiac enzymes were negative times multiple sets. Her proBNP was 838. ASSESSMENT: Ms. Lazcano is a 69-year-old female who presented with diastolic heart failure/cor pulmonale. PLAN: She has marked elevation of her blood pressure. I have already added in topical nitrates to assist further diuresis. She is on IV diuretics presently and seems to be diuresing reasonably well. We will order laboratories in the morning including a basic chemistry and a proBNP as well as a magnesium. cc: Raudel Lim MD [facility]
[2019-09-14 12:54] LABS: PO2(98.6) 48 mmHg (60-100)
[2019-09-14 12:55] LABS: O2HB 82.9 % (95.0-99.0)
[2019-09-14] MEDS: NITROGLYCERIN TOP SCH ×2 (15:36→18:05)
[2019-09-14] MEDS ORDERED: D50W SYRINGE IV ONE (16:11)
[2019-09-14] MEDS: ROCEPHIN 1 GM in NS 50 ML IV SCH (16:12)
--- NOTE | 2019-09-14 16:14 | Diag Imaging Result Doc PS360 ---
EXAM: MUGA (GATED CARDIAC SCAN) 09/14/2019 HISTORY: chf TECHNIQUE: Gated cardiac wall motion study, 23.1 mCi of technetium 99m pertechnetate and cold PYP COMMENT: The left ventricular ejection fraction is 72%. There are no previous studies available for comparison. There appears to be good wall motion. IMPRESSION: Normal left ventricular ejection fraction. Electronically signed by Lul Doan 09/14/2019 4:12 PM
[2019-09-14] MEDS: ZITHROMAX 500 MG/NS 500 MG/250 ML IVPB IV SCH (16:43)
[2019-09-14] MEDS ORDERED: VANCOMYCIN 2,000 MG in NS 500 ML IV SCH (17:00)
--- NOTE | 2019-09-14 20:16 | ECHO REPORT ---
ORDER DATE: 09/14/2019 INDICATION: A 69-year-old female with shortness of breath. This is a limited echocardiogram. The patient had a poor transthoracic echo, and contrast addition has been requested. M-mode measurements cannot be obtained. The patient does not really have any reasonable parasternal window to measure anything. SUMMARY OF 2-DIMENSIONAL IMAGIN. The left ventricular systolic function visually appears to be normal and is probably in the range of 55% to 60%. I really do not see any wall motion abnormality. The base, the mid and the apical segments of the septum and lateral wall as well as the anterior wall and inferior wall show good contractility. 2. I do not see evidence of pericardial effusion. In summary, this contrast echo shows that all of the segments of the left ventricle show good contractility, and ejection fraction is in the normal range of 55% to 60%. Clinical correlation recommended. cc: MD Raudel Owens MD
--- NOTE | 2019-09-14 21:01 | PROGRESS NOTE ---
DATE: 09/14/2019 SUBJECTIVE: She is much better today, awake, alert. I do not even recognize her compared to yesterday. She is holding a conversation. She seems to be doing a lot better. She says she feels a lot better. OBJECTIVE: Blood pressure 151/63, heart rate of 72, respiratory rate 16, temperature 98.5 degrees, 97% on 35%.Cardiovascular: Regular rate and rhythm. Pulmonary: Diminished at the bases. Gastrointestinal: Soft, nontender, nondistended. Bowel sounds are positive. LABORATORY DATA: White count is 6, hemoglobin and hematocrit up to 8 and 29, platelets of 218,000. BUN and creatinine of 29 and 1.6. PROBLEM LIST: 1. Acute systolic, possibly diastolic, heart failure. Her echo, I think showed an intact ejection fraction, although they recommended a MUGA, so we will get that. We will continue diuretics and follow closely. Appreciate cardiology input. 2. Urinary tract infection. She is growing out a gram-negative landon, so we will continue antibiotics. She is on vancomycin, but I do not think she necessarily needs that at this point. She is on Rocephin and azithromycin. We will continue to follow. 3. Diabetes. Appears to be relatively well controlled. Check an A1c tomorrow. 4. Chronic renal failure. There is a little bit of increase today, but that is after medications. 5. Hypertension. She is on Norvasc clonidine, Coreg. She has been on nitroglycerin per Dr. Lim. Will probably transition her to Imdur. I will let him handle that or whatever his preference is at this point. DISPOSITION: I think we will continue to monitor in the ICU and anticipate possible transfer tomorrow. cc: Max Beth MD
[2019-09-15] MEDS: NITROGLYCERIN TOP SCH ×3 (01:51→18:09)
[2019-09-15] MEDS: DUONEB (A & A) INH SCH ×6 (03:34→23:30)
[2019-09-15 04:41] LABS: ALLEN TEST YES; BE 4.5 mmoll (-3.0-3.0); BLOOD TYPE ARTERIAL; HCO3-(ACT) 28.4 mmoll (20.0-26.0); METHB 0.8 % (0.0-1.5); O2(CT) 9.9 mL/dL (15.0-23.0); O2HB 93.6 % (95.0-99.0); PO2(98.6) 75 mmHg (60-100); SAMPLE BLOOD; SAO2 94.9 % (95.0-100.0); THB 7.4 g/dL (11.5-17.4); pH(98.6) 7.38 (7.35-7.45)
[2019-09-15 04:43] LABS: MODALITY VENTIMASK; PCO2(98.6) 51 mmHg (35-45)
[2019-09-15 04:55] LABS: HEMOGLOBIN A1C 5.3 % (4.8-6.0)
[2019-09-15 05:16] LABS: INR 1.81; PROTIME 21.4 Seconds (11.0-16.0)
[2019-09-15 05:24] LABS: CREATININE 1.7 mg/dL (0.5-0.9); MAGNESIUM 1.8 mg/dL (1.5-2.7); POTASSIUM 4.2 mmol/L (3.5-5.1)
[2019-09-15] MEDS: SYNTHROID PO SCH (06:02)
[2019-09-15] MEDS: HUMULIN R SUBQ SCH ×4 (06:25→20:59)
--- NOTE | 2019-09-15 07:07 | Diag Imaging Result Doc PS360 ---
EXAM: CHEST-PORTABLE HISTORY: dyspnea TECHNIQUE: Single view COMPARISON: 09/12/2019 FINDINGS: The lungs are well expanded. Cardiac megaly remains. Interval decrease in the pulmonary edema. No consolidation. No pleural effusions identified. IMPRESSION: Interval improvement Electronically signed by Bassam Field 09/15/2019 7:04 AM
[2019-09-15] MEDS: CATAPRES PO SCH ×2 (08:35→20:58)
[2019-09-15] MEDS: COZAAR PO SCH (08:35)
[2019-09-15] MEDS: COREG PO SCH ×2 (08:35→20:59)
[2019-09-15] MEDS: ALDACTONE PO SCH ×2 (08:35→20:59)
[2019-09-15] MEDS: GLUCOSAMINE 500 MG/CHONDROITIN 400 MG PO SCH (08:35)
[2019-09-15] MEDS: FOLIC ACID PO SCH ×2 (08:35→20:58)
[2019-09-15] MEDS: NORVASC PO SCH (08:35)
[2019-09-15] MEDS: LASIX IV SCH ×2 (08:36→20:58)
[2019-09-15] MEDS: ROCEPHIN 1 GM in NS 50 ML IV SCH (08:36)
[2019-09-15] MEDS: AMARYL PO SCH (08:37)
[2019-09-15] MEDS: ZITHROMAX 500 MG/NS 500 MG/250 ML IVPB IV SCH (16:59)
--- NOTE | 2019-09-15 20:31 | PROGRESS NOTE ---
DATE: 09/15/2019 SUBJECTIVE: This patient seems to be feeling better today. She is awake. She is alert. She is answering all my questions. She is not complaining of chest pain. She still has some shortness of breath. OBJECTIVE: Vital Signs: Temperature 98.2 degrees, pulse 62, respiratory rate 16, blood pressure 137/52, oxygen saturation 92 on a Venturi mask. HEENT: Head normocephalic, no trauma. PERRLA. Neck: Supple. She does have some JVD central trachea. Chest: Coarse breath sounds at the bases with some crackles. Abdomen: Soft, protuberant, nontender, nondistended. I cannot feel hepatosplenomegaly because of her size. Extremities: 2 to 3+ lower extremity edema. No clubbing. No cyanosis. Neurological: The patient is alert. She is oriented x3. She is following commands. She does have generalized weakness. LABORATORY: Sodium 142, potassium 4.2, chloride 103, bicarbonate 26, BUN 30, creatinine 1.7, glucose 67, calcium 9, magnesium 1.8. ASSESSMENT AND PLAN: 1. Acute diastolic heart failure/cor pulmonale, this patient is feeling much better. Chest x-ray is better as well, so far we have a negative balance of 4.5 L. Cardiology department and pulmonary department following this patient. She had an echocardiogram that showed an ejection fraction of 55 to 60 percent with a good wall good wall motion and contractility, also a MUGA scan showed a normal left ventricular ejection fraction. 2. Possible underlying pneumonia and urinary tract infection, she has been placed on ceftriaxone and azithromycin, she is feeling better. 3. Diabetes, well controlled. Hemoglobin A1c actually is good at 5.3. 4. Chronic kidney disease, this seems to be her baseline. We will continue with same management. She is getting diuretics and she is responding to it today. 5. Hypertension. Continue with same management per Cardiology Department. 6. Atrial fibrillation. When she came in, her INR was supratherapeutic. We have been holding that medication but I will go ahead and put her back on warfarin since the INR is 1.8 and monitor. Apparent history of intracranial bleeding with intraventricular hemorrhage in 2011 in [place] that apparently was a hemorrhagic conversion from an ischemic CVA. 7. Hypothyroidism. Continue with levothyroxine. I will ask for TSH. 8. Overall, this patient seems to be doing better. I will transfer to this patient to a step- down unit and monitor. cc: Brayan Anton MD
[2019-09-15] MEDS ORDERED: COUMADIN PO SCH (21:00)
--- NOTE | 2019-09-16 01:07 | PROGRESS NOTE ---
DATE: 09/15/2019 SUBJECTIVE: The patient denies shortness of breath or chest discomfort, on supplemental oxygen which she seems to wear inconsistently. OBJECTIVE: Blood pressure 137/52, heart rate 62, oxygen saturation 95%. There is no significant jugular venous distention discernible. Chest is clear to auscultation bilaterally. Cardiac exam reveals a regular rate and rhythm without appreciable murmur or gallop. Extremities demonstrate mild edema. LABORATORY DATA: Includes pro time 21.4, INR 1.8. Sodium 142, potassium 4.2, chloride 103, carbon dioxide 26, BUN 30, creatinine 1.7, glucose 67. IMPRESSION: 1. Kidun-sp-hbrzzzx congestive heart failure with preserved left ventricular ejection fraction, probably multifactorial in origin but aggravated by recent poor compliance with sodium restriction and diuretic therapy. 2. Atrial fibrillation. 3. Cor pulmonale. 4. Chronic kidney disease. 5. Diabetes mellitus. 6. Hypothyroidism. 7. Previous intracranial hemorrhage, intraventricular hemorrhage in 2011, felt to be a hemorrhagic conversion of ischemic cerebrovascular accident. 8. Diastolic left ventricular dysfunction. RECOMMENDATIONS: 1. Continue to diurese. 2. Patient improved sufficiently to transfer to stepdown unit. cc: Phillip Deleon MD
[2019-09-16] MEDS: NITROGLYCERIN TOP SCH ×4 (01:37→18:05)
[2019-09-16] MEDS: DUONEB (A & A) INH SCH ×6 (02:58→23:30)
[2019-09-16] MEDS: TYLENOL PO PRN ×2 (04:17→20:52)
[2019-09-16 04:45] LABS: ALLEN TEST YES; BE 4.8 mmoll (-3.0-3.0); BLOOD TYPE ARTERIAL; HCO3-(ACT) 28.7 mmoll (20.0-26.0); METHB 0.5 % (0.0-1.5); O2(CT) 10.6 mL/dL (15.0-23.0); O2HB 95.3 % (95.0-99.0); PCO2(98.6) 42 mmHg (35-45); PO2(98.6) 89 mmHg (60-100); SAMPLE BLOOD; SAO2 96.3 % (95.0-100.0); THB 7.8 g/dL (11.5-17.4); pH(98.6) 7.45 (7.35-7.45)
[2019-09-16 04:46] LABS: MODALITY HIGH FLOW NASAL CAN
[2019-09-16 05:03] LABS: BASO# 0.03 X1000 (0.0-0.2); BASO% 0.6 % (0.0-0.8); EOS# 0.36 X1000 (0.0-0.7); EOS% 6.9 % (0.0-10.0); HEMATOCRIT 25.3 % (37.0-47.0); HEMOGLOBIN 7.3 g/dL (12.0-16.0); IMM GRAN# 0.02 X1000 (0.0-0.04); IMM GRAN% 0.4 % (0.0-0.5); LYMPH# 1.37 X1000 (1.2-3.4); LYMPH% 26.3 % (20.5-51.1); MCH 28.1 PG (27-31); MCHC 28.9 g/dL (33-37); MCV 97.3 FL (81-99); MONO# 0.81 X1000 (0.11-0.59); MONO% 15.6 % (1.7-9.3); NEUT# 2.61 X1000 (1.4-6.5); NEUT% 50.2 % (42.2-75.2); PLT 187 X1000 (130-400); RDW 17.7 % (11.5-14.5)
[2019-09-16 05:07] LABS: INR 1.49; PROTIME 18.3 Seconds (11.0-16.0)
[2019-09-16] MEDS: SYNTHROID PO SCH (06:03)
[2019-09-16] MEDS: HUMULIN R SUBQ SCH ×4 (06:03→20:07)
[2019-09-16 06:30] LABS: ALB/GLOB RATIO 0.8; ALBUMIN 2.7 g/dL (3.5-5.0); CALCIUM 8.6 mg/dL (8.8-10.2); CREATININE 1.7 mg/dL (0.5-0.9); MAGNESIUM 1.9 mg/dL (1.5-2.7); PHOSPHORUS 5.2 mg/dL (2.7-4.5); POTASSIUM 4.4 mmol/L (3.5-5.1); TOTAL BILIRUBIN 0.35 mg/dL (0.20-1.00); TOTAL PROTEIN 6.3 g/dL (6.3-8.3)
--- NOTE | 2019-09-16 08:13 | Diag Imaging Result Doc PS360 ---
EXAM: CHEST-PORTABLE - 09/16/2019 HISTORY: dyspnea TECHNIQUE: Portable chest COMPARISON: 09/15/2019 FINDINGS: There is cardiomegaly. Inspiration is mildly shallow. There is been apparent increase in ill-defined mid and lower lung infiltrate or edema on the left, although this could be exaggerated by differences in patient rotation between the exams. There are no other significant interval changes identified. IMPRESSION: Apparent increase in ill-defined mid and lower lung infiltrate on the left. Electronically signed by Brennan Corbett 09/16/2019 8:11 AM
--- NOTE | 2019-09-16 08:41 | PROGRESS NOTE ---
DATE: 09/16/2019 SUBJECTIVE: The patient seems to be feeling better. She is awake. She is alert. She is following commands and answering all my questions. She is not complaining of chest pain. She is still complaining of some shortness of breath and weakness. OBJECTIVE: Vital Signs: Temperature 97.9 degrees, pulse 78, blood pressure 123/53, oxygen saturation 92 on a Venturi mask. HEENT: Head normocephalic. No trauma. PERRLA. Neck: Supple. She does have some JVD. Central trachea. Chest: Coarse breath sounds, mostly at the bases, with some crackles. Abdomen: Soft, protuberant, nontender, nondistended. I cannot feel hepatosplenomegaly because of her size. Extremities: There is 2 to 3+ lower extremity edema. No clubbing. No cyanosis. Neurological Examination: The patient is alert. She is oriented x3. She is following commands. She does have generalized weakness. Laboratory: WBC 5.2, hemoglobin 7.3, hematocrit 25.3, platelets 187,000. Sodium 136, potassium 4.4, chloride 97, bicarbonate 27, BUN 38, creatinine 1.7, glucose 111, calcium 8.6, phosphorus 5.2, albumin 2.7. ASSESSMENT AND PLAN: 1. Acute diastolic heart failure/cor pulmonale. This patient is feeling much better. So far, we have a negative balance of 5.1 L. Cardiology department and pulmonary department following this patient. We will continue with diuresis. She is responding to the intravenous Lasix. She does have chronic kidney disease but this is her baseline. She is still on a Ventimask. 2. Urinary tract infection and possible underlying pneumonia. She has been placed on ceftriaxone and azithromycin. She is feeling better. I do not honestly think that she has had pneumonia but she had some discomfort voiding so we will continue with the same management for now. 3. Anemia, macrocytic. Folic acid and B12 within normal limits. Iron is low but the total iron binding capacity is 256 with a ferritin level of 80. We will monitor for now. She received already 1 unit of blood during this hospitalization because her hemoglobin was around 7.1 and then increased to 8.5. Now, it is back down to 7.3. She has been on warfarin which has been stopped due to a supratherapeutic INR. I will continue holding this medication due to her anemia and I will ask for an occult blood in the stool. 4. Hypoxemic respiratory failure. Continue with oxygen supplementation. Likely due to fluid overload due to heart failure. 5. Diabetes, well controlled. Hemoglobin A1c actually is good at 5.3. 6. Chronic kidney disease. This seems to be at her baseline. She is getting some diuretics. We have a negative balance. 7. Hypertension. Continue with the same management per cardiology department. 8. Atrial fibrillation. Upon admission, the INR was supratherapeutic and we have been holding this medication. Her hemoglobin dropped even though she receive 1 unit of packed red blood cells. I will ask for an occult blood in the stool and I will continue holding the warfarin for now. 9. Apparent history of intracranial bleeding with intraventricular hemorrhage in 2011 in [place] that apparently was a hemorrhagic conversion from an ischemic cerebrovascular accident. 10. Hypothyroidism. Continue with levothyroxine. TSH is slightly elevated. Probably, we need to repeat the TSH in the future and readjust her medications once she is feeling better. 11. Overall, this patient is doing better. This patient has been transferred to a stepdown unit. For her generalized weakness, I will ask physical therapy to evaluate this patient. 12. This patient's hemoglobin has been dropping even though she receive a unit of packed red blood cells. Warfarin has been on hold. I will ask for an occult blood in the stool. cc: Brayan Anton MD [facility]
[2019-09-16] MEDS: LASIX IV SCH ×2 (08:56→20:07)
[2019-09-16] MEDS: ROCEPHIN 1 GM in NS 50 ML IV SCH (08:56)
[2019-09-16] MEDS: ALDACTONE PO SCH ×2 (08:57→20:07)
[2019-09-16] MEDS: COZAAR PO SCH (08:57)
[2019-09-16] MEDS: NORVASC PO SCH (08:57)
[2019-09-16] MEDS: CATAPRES PO SCH ×2 (08:57→20:07)
[2019-09-16] MEDS: FOLIC ACID PO SCH ×2 (08:57→20:07)
[2019-09-16] MEDS: COREG PO SCH ×2 (08:57→20:06)
[2019-09-16] MEDS: GLUCOSAMINE 500 MG/CHONDROITIN 400 MG PO SCH (09:10)
[2019-09-16] MEDS: AMARYL PO SCH (09:11)
[2019-09-16] MEDS: ZITHROMAX 500 MG/NS 500 MG/250 ML IVPB IV SCH (16:41)
[2019-09-17] MEDS: DUONEB (A & A) INH SCH ×6 (03:17→23:13)
[2019-09-17] MEDS: NITROGLYCERIN TOP SCH ×3 (03:40→20:45)
[2019-09-17 04:50] LABS: ALLEN TEST YES; BE 5.4 mmoll (-3.0-3.0); BLOOD TYPE ARTERIAL; HCO3-(ACT) 29.1 mmoll (20.0-26.0); O2(CT) 7.8 mL/dL (15.0-23.0); O2HB 91.7 % (95.0-99.0); PO2(98.6) 61 mmHg (60-100); SAMPLE BLOOD; SAO2 93.4 % (95.0-100.0); pH(98.6) 7.37 (7.35-7.45)
[2019-09-17 04:59] LABS: MODALITY VENTIMASK; PCO2(98.6) 54 mmHg (35-45)
[2019-09-17] MEDS: SYNTHROID PO SCH (06:04)
[2019-09-17] MEDS: HUMULIN R SUBQ SCH ×3 (06:50→17:45)
[2019-09-17 07:29] LABS: HEMATOCRIT 25.3 % (37.0-47.0); HEMOGLOBIN 7.4 g/dL (12.0-16.0)
[2019-09-17 07:51] LABS: CALCIUM 9.1 mg/dL (8.8-10.2); CREATININE 1.8 mg/dL (0.5-0.9); POTASSIUM 4.6 mmol/L (3.5-5.1)
[2019-09-17] MEDS: LASIX IV SCH ×2 (09:49→20:46)
[2019-09-17] MEDS: ALDACTONE PO SCH ×2 (09:50→20:46)
[2019-09-17] MEDS: COZAAR PO SCH (09:50)
[2019-09-17] MEDS: AMARYL PO SCH (09:50)
[2019-09-17] MEDS: COREG PO SCH ×3 (09:50→20:46)
[2019-09-17] MEDS: NORVASC PO SCH (09:50)
[2019-09-17] MEDS: GLUCOSAMINE 500 MG/CHONDROITIN 400 MG PO SCH (09:50)
[2019-09-17] MEDS: FOLIC ACID PO SCH ×2 (09:50→20:46)
[2019-09-17] MEDS: CATAPRES PO SCH ×2 (09:51→20:46)
[2019-09-17] MEDS: ROCEPHIN 1 GM in NS 50 ML IV SCH (09:51)
--- NOTE | 2019-09-17 11:17 | PROGRESS NOTE ---
DATE: 09/17/2019 SUBJECTIVE: This morning Ms. Lazcano refers to be doing a lot better. Her shortness of breath has significantly improved, and her swelling is also getting better. Her brother was at the bedside at the time of the encounter. The brother did tell me that they went on a family trip for their weekend to a beach, and Ms. Lazcano did not take her water pill because she did not want to be stopping on the way to urinate. Since then she started swelling up. OBJECTIVE: Vital Signs: This morning her blood pressure is 140/66, pulse of 65, respirations 16, temperature is 97.6 degrees. Patient is saturating 96% on the Venturi mask. General exam: Ms. Lazcano is a 69-year-old morbidly obese female with a BMI of 54.1. She is in bed on a Venturi mask. HEENT: Mucosa is pink and moist. Anicteric. Acyanotic. Neck: Supple. No JVD. Chest: Air entry is bilaterally reduced. There are crackles posteriorly. Cardiovascular: Regular rate and rhythm. GI: Abdomen is soft, distended, but nontender. Extremities: About 2+ pedal edema. NUT CRACKER: Patient is awake, alert and oriented. IMAGIN. No imaging studies for today. The patient's gated stress test did show an ejection fraction of 72% with normal left ventricular ejection fraction. 2. A chest x-ray showed some infiltrates in the left lung. ASSESSMENT: 1. Fluid overload on admission secondary to congestive heart failure exacerbation. 2. Congestive heart failure exacerbation due to noncompliance. 3. Acute hypoxemic respiratory failure. The patient continues to be needing supplemental oxygen. 4. Chronic kidney disease stage III-A, presumably cardiorenal. 5. Paroxysmal atrial fibrillation. 6. Hypothyroidism. Patient is on supplements. 7. Diabetes mellitus. We will continue with insulin regimen. Patient is also on Amaryl. 8. Microcytic anemia with underlying iron deficiency as well. 9. Morbid obesity with suspected obstructive sleep apnea. 10. Escherichia coli urinary tract infection. Patient is on ceftriaxone. This will be switched to Keflex for discharge. PLAN: In general, I think Ms. Lazcano is doing a lot better. She is currently negative balance of 5885. We are going to continue with the IV diuretic therapy. She has also been started on Cozaar, spironolactone, and Coreg. cc: Anam Castillo MD
[2019-09-17] MEDS: TYLENOL PO PRN ×2 (11:24→20:54)
[2019-09-17] MEDS: ZITHROMAX 500 MG/NS 500 MG/250 ML IVPB IV SCH (17:45)
--- NOTE | 2019-09-17 19:53 | CARDIOLOGY PROGRESS NOTE ---
DATE: 09/17/2019 SUBJECTIVE: Ms. Lazcano says she feels quite a bit better than she did on at admit. She apparently sat up for a couple hours today. She has not done any significant ambulation though. OBJECTIVE: PHYSICAL EXAMINATION: Vital signs: She is afebrile. Heart rate is 62. Her blood pressure is 145/68. Her I's and O's continue to be negative. She is a total of 5.8 L negative with a number of voids not measured. General: She is in no acute distress. Cardiovascular: She sounds to be in a regular rate and rhythm. She has no murmurs. She has 1+ bilateral lower extremity edema. Chest: Her chest exam is clear. Poor inspiratory effort. Distant breath sounds. She has no increased work of breathing. She is still on a Ventimask. Abdomen: Is soft, nontender. PERTINENT DATA: Hematocrit is 25, which is stable from yesterday. BUN and creatinine are 37 and 1.88, which has trended up slowly from admission of 33 and 1.4; however, this is still within her baseline. Her proBNP on the was 932. No recheck since then. ASSESSMENT: Ms. Lazcano is a 69-year-old female with diastolic failure who presented with volume overload secondary to sodium and dietary sodium restriction noncompliance, as well as oral diuretic therapy noncompliance. PLAN: We will continue her on IV diuretics for the time being. I will not titrate her antihypertensives at this point, considering her mild elevation in creatinine. We will recheck laboratories in the morning including a chest x-ray. Her INR was last checked on the , has not been checked today. I will reorder an INR for the morning. cc: Raudel Lim MD
[2019-09-18] MEDS: DUONEB (A & A) INH SCH ×3 (03:17→11:44)
[2019-09-18 04:06] LABS: ALLEN TEST YES; BE 7.4 mmoll (-3.0-3.0); BLOOD TYPE ARTERIAL; HCO3-(ACT) 30.6 mmoll (20.0-26.0); METHB 0.9 % (0.0-1.5); O2(CT) 10.5 mL/dL (15.0-23.0); O2HB 91.7 % (95.0-99.0); PO2(98.6) 63 mmHg (60-100); SAMPLE BLOOD; SAO2 93.1 % (95.0-100.0); THB 8.1 g/dL (11.5-17.4); pH(98.6) 7.41 (7.35-7.45)
[2019-09-18 04:10] LABS: MODALITY CANNULA; PCO2(98.6) 52 mmHg (35-45)
[2019-09-18] MEDS: HUMULIN R SUBQ SCH ×3 (04:22→12:23)
[2019-09-18] MEDS: NITROGLYCERIN TOP SCH ×3 (04:23→08:10)
[2019-09-18] MEDS: SYNTHROID PO SCH (06:31)
--- NOTE | 2019-09-18 07:01 | Diag Imaging Result Doc PS360 ---
EXAM: CHEST-PORTABLE 09/18/2019 HISTORY: dyspnea TECHNIQUE: AP portable at 0551 COMMENT: Compared to 09/16/2019 the pulmonary opacities which were present previously bilaterally have improved. The heart size remains slightly enlarged. IMPRESSION: Near resolution of pulmonary edema. Electronically signed by Lul Doan 09/18/2019 6:59 AM
[2019-09-18 07:44] LABS: INR 1.45; PROTIME 17.9 Seconds (11.0-16.0)
[2019-09-18 07:58] LABS: CALCIUM 9.1 mg/dL (8.8-10.2); CREATININE 1.7 mg/dL (0.5-0.9); POTASSIUM 4.4 mmol/L (3.5-5.1)
[2019-09-18] MEDS: AMARYL PO SCH (08:08)
[2019-09-18] MEDS: ROCEPHIN 1 GM in NS 50 ML IV SCH (08:08)
[2019-09-18] MEDS: NORVASC PO SCH (08:08)
[2019-09-18] MEDS: FOLIC ACID PO SCH (08:08)
[2019-09-18] MEDS: LASIX IV SCH (08:08)
[2019-09-18] MEDS: GLUCOSAMINE 500 MG/CHONDROITIN 400 MG PO SCH (08:08)
[2019-09-18] MEDS: ALDACTONE PO SCH (08:09)
[2019-09-18] MEDS: COREG PO SCH (08:09)
[2019-09-18] MEDS: CATAPRES PO SCH (08:09)
[2019-09-18] MEDS ORDERED: COZAAR PO SCH ×2 (09:00)
[2019-09-18 12:09] VITALS: BP 118/63
--- NOTE | 2019-09-18 19:47 | CARDIOLOGY PROGRESS NOTE ---
DATE: 09/18/2019 SUBJECTIVE: Ms. Lazcano reports she is doing well today. She ambulated in the ruiz. Breathing has improved. PHYSICAL EXAMINATION: Vital signs: Afebrile. Heart rate 63. Blood pressure 118/63. General: She is in no acute distress. Cardiovascular: She sounds to be in a regular rate and rhythm. She has no murmurs, no S3. She continues to have 1+ bilateral lower extremity edema. Chest: Exam is clear bilaterally. She has no increased work of breathing. Abdomen: Soft, nontender. No obvious organomegaly. PERTINENT DATA: Chest x-ray shows near resolution of pulmonary edema. Her proBNP is 767, which is slightly reduced from a high during this hospitalization. BUN and creatinine 44 and 1.7, which is around her baseline. Potassium 4.4. ASSESSMENT: Ms. Lazcano is a 69-year-old female who presented with diastolic failure secondary to dietary noncompliance as well as noncompliance with diuretics. PLAN: Change her over to oral diuretics. We will continue the other medications. She is potentially being discharged home per the primary team. At some point, she is going to need an evaluation of her anemia which has been relatively stable during this hospitalization. Please contact us if we can be of further assistance with this patient. cc: Raudel Lim MD
[2019-09-18] MEDS ORDERED: LASIX PO SCH (21:00)
--- NOTE | 2019-09-19 16:26 | DISCHARGE SUMMARY ---
ADMISSION DATE: 09/12/2019 DISCHARGE DATE: 09/18/2019 DISPOSITION: Home with home health. FOLLOWUP: 1. Dr. Haq. 2. Dr. Flores. 3. Dr. Raudel Lim. CONSULTATION DURING THIS ADMISSION: 1. Cardiology was consulted. Patient was seen by Dr. Raudel Lim. Followed up by Dr. Deleon. 2. Pulmonary Medicine was consulted. Patient was seen by Dr. Flores. INVASIVE PROCEDURES DURING THIS ADMISSION: None. IMAGING STUDIES OF SIGNIFICANCE: 1. A chest x-ray initially showed cardiomegaly with mild congestive heart failure. 2. Echocardiogram did show ejection fraction of 50%. 3. A gated cardiac scan was done which showed an ejection fraction of 72%, good wall motion. 4. Multiple x-rays were done subsequently, 1 done this morning, on the day of discharge show a near resolution of pulmonary edema. ADMISSION DIAGNOSES: 1. Congestive heart failure. 2. Acute respiratory failure. 3. Urinary tract infection. 4. Coagulopathy secondary to Coumadin use. 5. Hypothermia. DISCHARGE: 1. Fluid overload on admission secondary to congestive heart failure exacerbation. 2. Congestive heart failure exacerbation due to noncompliance. 3. Acute hypoxemic respiratory failure due to pulmonary edema. 4. Chronic kidney disease stage 3A. 5. Paroxysmal atrial fibrillation. 6. Hypothyroidism. 7. Diabetes mellitus controlled on insulin regimen. 8. Microcytic anemia with underlying iron deficiency. 9. Morbid obesity. 10. Obstructive sleep apnea. 11. Escherichia urinary tract infection. DISCHARGE MEDICATIONS: 1. Spironolactone 25 mg b.i.d. 2. Glimepiride 4 mg p.o. daily. 3. Losartan mg p.o. daily. 4. Clonidine 0.1 mg b.i.d. 5. Amlodipine 10 mg p.o. daily. 6. Pioglitazone 30 mg p.o. daily. 7. Carvedilol 12.5 mg b.i.d. 8. Folic acid 1 mg b.i.d. 9. Levothyroxine 75 mcg p.o. daily. 10. Coumadin 5 mg p.o. at bedtime. 11. 2 mg p.o. daily. 12. Keflex 500 b.i.d. for 5 more days. PRESENTING COMPLAINT: Generalized weakness, shortness of breath. HISTORY OF PRESENTING COMPLAINT: Ms. Lazcano is a 75-year-old female with a history of congestive heart failure, hypertension, CVA, hypothyroidism, chronic kidney disease, came to the emergency department because of generalized weakness and increased shortness of breath. She was found to have a saturation initially of 95, that dropped to about 86. She was put on nasal cannula. ABGs were done and showed that the pCO2 was 41, a PO2 was 48. She was subsequently placed on BiPAP and admitted for hypoxemic respiratory failure. A chest x-ray did show cardiomegaly with congestive signs, so she was thought to have pulmonary edema secondary to congestive heart failure. She was subsequently admitted for further medical care. HOSPITAL COURSE: Ms. Lazcano initially presented to [facility] and was transferred to [facility] for higher level of care. During the hospital stay, she was started on IV diuretics for the congestive symptoms which she progressively improved. She did diurese adequately with a negative balance of [id number] throughout the hospital course. Ms. Lazcano was also found to have a pathological urine and she did complain of some symptoms so she was started on broad-spectrum IV antibiotics. Urine culture finally came back as Escherichia coli. She was subsequently titrated on the antibiotics accordingly. She was discharged on Keflex for 5 more days. Today, Ms. Lazcano refers to be feeling a lot better. She has been evaluated on during the hospital course by Pulmonary Medicine as well as Cardiology. She is currently asymptomatic. Her current vitals at the time of discharge, blood pressure is 118/63, pulse of 63, respirations 20, temperature 97.6 degrees. We think Ms. Lazcano is clinically stable for discharge. She is going to follow up with her primary care doctor as well as the subspecialties that have been involved with her care. DISCHARGE INSTRUCTIONS: All the discharge instructions discussed with her and she voiced understanding. TIME SPENT FOR DISCHARGE: 35 minutes. cc: MD Shanon Palafox MD Mamoun I. Najjar, MD Peter Johnson, MD MTDD
== END 2019-09-18 14:12 | disposition home or self-care (01) | DRG 189 ==
LOC: P.ED 21:00 → SUATTDRO 23:04 → P.EDIPHOLD 23:04 → ICU 09-13 12:10 → 3N 09-16 18:35
PROVIDERS: ATTEND Internal Medicine

== ENCOUNTER 2019-11-07 17:47 | Inpatient (IN) ==
[2019-11-07 18:18] LABS: BASO# 0.02 X1000 (0.0-0.2); BASO% 0.3 % (0.0-0.8); EOS# 0.25 X1000 (0.0-0.7); EOS% 3.8 % (0.0-10.0); HEMATOCRIT 27.9 % (37.0-47.0); HEMOGLOBIN 8.2 g/dL (12.0-16.0); IMM GRAN# 0.08 X1000 (0.0-0.04); IMM GRAN% 1.2 % (0.0-0.5); LYMPH# 1.13 X1000 (1.2-3.4); LYMPH% 17.3 % (20.5-51.1); MCH 26.1 PG (27-31); MCHC 29.4 g/dL (33-37); MCV 88.9 FL (81-99); MONO# 0.55 X1000 (0.11-0.59); MONO% 8.4 % (1.7-9.3); MPV 8.3 FL (7.4-10.4); NEUT# 4.49 X1000 (1.4-6.5); PLT 279 X1000 (130-400); RBC 3.14 XMIL (4.2-5.4); RDW 15.9 % (11.5-14.5); WBC 6.52 X1000 (4.8-10.8)
[2019-11-07 18:31] LABS: INR 1.25; PROTIME 16.4 Seconds (11.0-16.0)
[2019-11-07 18:36] LABS: ALBUMIN 3.6 g/dL (3.5-5.0); CALCIUM 8.6 mg/dL (8.8-10.2); CREATININE 1.2 mg/dL (0.5-0.9); MAGNESIUM 1.9 mg/dL (1.5-2.7); POTASSIUM 4.3 mmol/L (3.5-5.1); TOTAL BILIRUBIN 0.4 mg/dL (0.20-1.00); TOTAL PROTEIN 7.1 g/dL (6.3-8.3)
[2019-11-07] MEDS ORDERED: DUONEB (A & A) INH ONE (18:39)
--- NOTE | 2019-11-07 18:40 | Diag Imaging Result Doc PS360 ---
EXAM: CHEST-1 VIEW HISTORY: hypoxemia TECHNIQUE: Single view COMPARISON: 08/25/2020 FINDINGS: The lungs are well expanded. The heart is enlarged. The vessels are not distended. There are no infiltrates. No effusion identified. IMPRESSION: Cardiomegaly Electronically signed by Bassam Field 11/07/2019 6:38 PM
[2019-11-07 18:43] LABS: URINE SOURCE CATH
[2019-11-07 18:46] LABS: BILIRUBIN URINE NEGATIVE (NEGATIVE); BLOOD URINE TRACE (NEGATIVE); COLOR YELLOW; GLUCOSE URINE NEGATIVE (NEGATIVE); KETONE URINE NEGATIVE (NEGATIVE); LEUKOCYTES URINE NEGATIVE (NEGATIVE); NITRITE URINE NEGATIVE (NEGATIVE); PROTEIN URINE 30 mg/dL (NEGATIVE); SP GRAVITY URINE 1.012; TURBIDITY URINE CLEAR (CLEAR); UR EPITHELIAL CELLS <10 /HPF (<10); URINE BACTERIA NEGATIVE /HPF; URINE RBC <10 /HPF (<10); URINE WBC <10 /HPF (<10); UROBILINOGEN URINE NORMAL (NORMAL)
--- NOTE | 2019-11-07 19:04 | EKG Report ---
Test Performed on : 11/07/2019 6:46:25 PM Test Reason : hypoxemia, CHF Blood Pressure : / mmHG Vent. Rate : 068 BPM Atrial Rate : 068 BPM P-R Int : 182 ms QRS Dur : 088 ms QT Int : 414 ms P-R-T Axes : 084 075 044 degrees QTc Int : 440 ms Normal sinus rhythm. Low voltage QRS Borderline ECG When compared with ECG of 07-NOV-2019 18:45, (Unconfirmed) Previous ECG has undetermined rhythm, needs review Non-specific change in ST segment in Inferior leads Nonspecific T wave abnormality has replaced inverted T waves in Inferior leads Unconfirmed Result
--- NOTE | 2019-11-07 19:47 | Diag Imaging Result Doc PS360 ---
EXAM: CT HEAD W/O CONTRAST HISTORY: altered mental status TECHNIQUE: CT head without contrast COMPARISON: 11/03/2019 FINDINGS: No parenchymal hemorrhage. No epidural or subdural hematoma. No subarachnoid hemorrhage. There are chronic microvascular ischemic changes with old lacunar infarcts. No mass identified on this noncontrasted exam. No hydrocephalus. No sinus opacification. IMPRESSION: No hemorrhage. Chronic ischemic changes with old lacunar infarcts. This exam was performed using automated exposure control, adjustment of mA or kV according to patient size, and/or use of iterative reconstruction technique. Electronically signed by Bassam Field 11/07/2019 7:45 PM
[2019-11-07] MEDS ORDERED: ZOFRAN IV PRN (22:58)
[2019-11-07] MEDS ORDERED: D5 NS 1,000 ML IV ONE (22:58)
[2019-11-08] MEDS: DUONEB (A & A) INH SCH ×7 (00:15→22:48)
[2019-11-08] MEDS: SOLU-MEDROL IV SCH ×4 (00:18→21:46)
[2019-11-08] MEDS ORDERED: SODIUM CHLORIDE 0.9% INJ SCH (05:30)
[2019-11-08] MEDS ORDERED: PROTONIX IV SCH (05:30)
[2019-11-08 06:27] LABS: ALBUMIN 2.9 g/dL (3.5-5.0); CALCIUM 8.3 mg/dL (8.8-10.2); CREATININE 1.2 mg/dL (0.5-0.9); PHOSPHORUS 3.2 mg/dL (2.7-4.5); POTASSIUM 4.3 mmol/L (3.5-5.1)
[2019-11-08 06:38] LABS: BASO# 0.01 X1000 (0.0-0.2); BASO% 0.2 % (0.0-0.8); EOS# 0.02 X1000 (0.0-0.7); EOS% 0.4 % (0.0-10.0); HEMATOCRIT 24.3 % (37.0-47.0); IMM GRAN# 0.06 X1000 (0.0-0.04); IMM GRAN% 1.1 % (0.0-0.5); LYMPH# 0.56 X1000 (1.2-3.4); LYMPH% 9.9 % (20.5-51.1); MCH 25.9 PG (27-31); MCHC 28.8 g/dL (33-37); MONO# 0.19 X1000 (0.11-0.59); MONO% 3.4 % (1.7-9.3); MPV 8.3 FL (7.4-10.4); PLT 244 X1000 (130-400); WBC 5.64 X1000 (4.8-10.8)
--- NOTE | 2019-11-08 10:46 | HISTORY AND PHYSICAL ---
PRIMARY CARE PHYSICIAN: Dr. Haq. CHIEF COMPLAINT: Was found unresponsive by a family member. When EMS arrived, her blood sugar was 36 and an O2 saturation on room air of 85%. HISTORY OF PRESENTING ILLNESS: This is a 69-year-old, female who presented to [facility] ER via EMS after she was found unresponsive by family. When EMS arrived, her blood sugar was 36, O2 saturation was 85% on room air. When she arrived to the emergency room, she was saturating 100% on 3 L via nasal cannula. Her blood sugar had come up to 108. Chest x-ray just showed cardiomegaly. Head CT showed no hemorrhage, chronic ischemic changes with old lacunar infarcts, and she was admitted for further evaluation and treatment. PAST MEDICAL HISTORY: COPD, diabetes type 2, CHF, hypertension, hyperlipidemia, GERD, CVA, hypothyroidism, and chronic kidney disease. PAST SURGICAL HISTORY: None. FAMILY HISTORY: Reviewed and noncontributory. SOCIAL HISTORY: She currently lives alone. Denied any tobacco, alcohol, or illicit drug use. ALLERGIES: She has no known drug allergies. HOME MEDICATIONS: She takes amlodipine 10 mg p.o. daily, biotin 10,000 mcg p.o. daily, Coreg 12.5 mg p.o. b.i.d., clonidine 0.1 mg p.o. b.i.d., folic acid 1 mg p.o. daily, glimepiride 4 mg p.o. daily will be held, glucosamine/chondroitin 1 tablet p.o. daily, Synthroid 75 mcg p.o. daily, losartan 50 mg p.o. daily, omeprazole 40 mg p.o. daily, spironolactone 25 mg p.o. b.i.d. LABORATORY DATA: Showed a white blood cell count of 6.52, hemoglobin 8.2, hematocrit 27.9, and platelets 279,000. PT and INR of 16.4 and 1.25. Sodium 141, potassium 4.3, chloride 106, CO2 of 22, BUN of 17, creatinine 1.2, glucose 108. ProBNP of 1287. TSH of 1.80, T4 of 7.37. Urinalysis was negative. Chest x-ray showed cardiomegaly. CT of the head showed no hemorrhage. Chronic ischemic changes with old lacunar infarcts. EKG, normal sinus rhythm at 68. REVIEW OF SYSTEMS: She denied any fever, chills, blurred vision, dizziness, chest pain, coughing, shortness of breath. Denied any abdominal pain, constipation, diarrhea, burning or hurting with urination. PHYSICAL EXAMINATION: VITAL SIGNS: On arrival, she had a pulse of 73, respirations 24, blood pressure 185/87, saturating 100% on nasal cannula. GENERAL: This is a 69-year-old, morbidly obese, female who is lying in the bed and answers questions appropriately. HEENT: Normocephalic, atraumatic. Normal ENT inspection. Oropharynx and nares are clear. Eyes: Pupils are equal, round, reactive to light and accommodation. Extraocular movements are intact. NECK: Normal inspection. Normal range of motion. LUNGS: Clear to auscultation bilaterally with equal lung expansion and chest wall movement. HEART: Regular rate and rhythm. No murmurs, rubs, or gallops. ABDOMEN: Soft, nontender, nondistended. Bowel sounds are present x4 quadrants. MUSCULOSKELETAL: She has 5/5 strength x4 extremities. NEUROLOGICAL: The cranial nerves 2-12 appear grossly intact. ASSESSMENT: 1. Diabetes type 2 with hypoglycemia. 2. Hypothermia with a temperature on arrival of 94, now up to 98. 3. Acute respiratory failure. 4. Chronic kidney disease, stable. PLAN: She was admitted to the medical unit. Placed on patterned blood sugars, diabetic diet, O2 per protocol. We will check a hemoglobin A1c. Place on DuoNebs q.4 hours, Solu-Medrol 40 mg IV every 8 and wean as she is improving. We will continue her home medications. We are going to hold her glipizide at this time. She received a liter of fluids of D5 NS at 100 mL an hour. I am going to hold off on starting any more as currently her blood sugar is up to 146. We will monitor closely. Dictated by ZONIA Jara for Evin Dutta MD cc: ZONIA Jara MD Bhavna Gowda, MD
[2019-11-08 11:35] LABS: HEMOGLOBIN A1C 5.7 % (4.8-6.0)
--- NOTE | 2019-11-08 19:33 | HISTORY AND PHYSICAL ---
ADDENDUM: Patient seen and examined by myself. Full note dictated separately by nurse practitioner. Patient presented to the hospital with low blood sugars. We have admitted her to the hospital. We are going to continue to follow. Please see full note. cc: Evin Dutta MD
[2019-11-08] MEDS: ALDACTONE PO SCH (21:45)
[2019-11-08] MEDS: COREG PO SCH (21:45)
[2019-11-08] MEDS: CATAPRES PO SCH (21:45)
[2019-11-09] MEDS: SOLU-MEDROL IV SCH ×4 (00:37→23:06)
[2019-11-09] MEDS: DUONEB (A & A) INH SCH ×6 (03:02→22:32)
[2019-11-09] MEDS: PRILOSEC PO SCH (06:01)
[2019-11-09] MEDS: SYNTHROID PO SCH (06:01)
[2019-11-09 06:44] LABS: ALBUMIN 2.9 g/dL (3.5-5.0); CALCIUM 8.2 mg/dL (8.8-10.2); CREATININE 1.4 mg/dL (0.5-0.9); POTASSIUM 4.6 mmol/L (3.5-5.1)
[2019-11-09 06:46] LABS: HEMOGLOBIN 6.7 g/dL (12.0-16.0); IMM GRAN# 0.07 X1000 (0.0-0.04); IMM GRAN% 0.9 % (0.0-0.5); LYMPH# 0.74 X1000 (1.2-3.4); LYMPH% 9.2 % (20.5-51.1); MCH 26.2 PG (27-31); MCHC 29.1 g/dL (33-37); MCV 89.8 FL (81-99); MONO# 0.42 X1000 (0.11-0.59); MONO% 5.2 % (1.7-9.3); MPV 8.6 FL (7.4-10.4); NEUT% 84.7 % (42.2-75.2); PLT 247 X1000 (130-400); RBC 2.56 XMIL (4.2-5.4); RDW 16.4 % (11.5-14.5); WBC 8.03 X1000 (4.8-10.8)
[2019-11-09] MEDS: COZAAR PO SCH (09:25)
[2019-11-09] MEDS: NORVASC PO SCH (09:25)
[2019-11-09] MEDS: FOLIC ACID PO SCH (09:25)
[2019-11-09] MEDS: ALDACTONE PO SCH ×2 (09:25→21:01)
[2019-11-09] MEDS: CATAPRES PO SCH ×2 (09:25→21:01)
[2019-11-09] MEDS: COREG PO SCH ×2 (09:25→21:01)
[2019-11-09] MEDS: GLUCOSAMINE 500 MG/CHONDROITIN 400 MG PO SCH (09:25)
[2019-11-09] MEDS: PATIENT'S OWN MED PO SCH (09:34)
[2019-11-09] MEDS ORDERED: NS 500 ML IV ONE (09:44)
[2019-11-09] MEDS ORDERED: DUONEB (A & A) INH PRN (09:46)
--- NOTE | 2019-11-09 19:16 | PROGRESS NOTE ---
DATE: 11/09/2019 SUBJECTIVE: The patient notes that she feels terrible. She is still requiring lots of oxygen, still having cough and shortness of breath and is still very tired. PHYSICAL EXAMINATION: Vital Signs: Temperature 97.8, pulse 71, respiratory rate 18 to 24, blood pressure 159/68, saturation 94% on 40% Ventimask. General: Patient is in mild respiratory distress. She is lying in the bed with the head elevated 30 degrees. She is very pleasant. She does appear to be oriented. HEENT: Normocephalic. Neck: Supple. Cardiovascular: Regular rate. No murmurs. Chest: Decreased but equal. Minimal wheezing. Abdomen: Soft nondistended. Extremities: Moves all extremities. ASSESSMENT: 1. Diabetes with hypoglycemia. 2. Anemia. Hemoglobin and hematocrit dropped slightly to 6.7 and 23; therefore, we are going to transfusion. 3. Chronic renal disease, stable. 4. Hypoxic respiratory failure. PLAN: We will continue the patient in the hospital. Transfuse 2 units given her hemoglobin and hematocrit are low and high O2 requirement. We are going to follow her with sliding scale insulin, breathing treatments, and we will follow. cc: Evin Dutta MD
[2019-11-09] MEDS: HUMALOG (PARKWAY) SUBQ SCH (23:06)
[2019-11-10] MEDS: DUONEB (A & A) INH SCH ×6 (03:23→22:48)
[2019-11-10] MEDS: PRILOSEC PO SCH (06:28)
[2019-11-10] MEDS: SYNTHROID PO SCH (06:28)
[2019-11-10] MEDS: SOLU-MEDROL IV SCH ×3 (06:28→22:04)
[2019-11-10 06:30] LABS: ALBUMIN 3.1 g/dL (3.5-5.0); CALCIUM 8.7 mg/dL (8.8-10.2); CREATININE 1.4 mg/dL (0.5-0.9); PHOSPHORUS 2.8 mg/dL (2.7-4.5); POTASSIUM 4.8 mmol/L (3.5-5.1)
[2019-11-10 06:40] LABS: HEMATOCRIT 27.2 % (37.0-47.0); IMM GRAN# 0.06 X1000 (0.0-0.04); IMM GRAN% 0.7 % (0.0-0.5); LYMPH% 7.9 % (20.5-51.1); MCH 25.9 PG (27-31); MCHC 29.4 g/dL (33-37); MONO# 0.42 X1000 (0.11-0.59); MONO% 4.8 % (1.7-9.3); MPV 8.5 FL (7.4-10.4); NEUT# 7.65 X1000 (1.4-6.5); NEUT% 86.6 % (42.2-75.2); PLT 235 X1000 (130-400); RBC 3.09 XMIL (4.2-5.4); WBC 8.83 X1000 (4.8-10.8)
[2019-11-10] MEDS: HUMALOG (PARKWAY) SUBQ SCH ×4 (06:42→21:40)
[2019-11-10 07:54] LABS: BANDS 3 % (0-1); LYMPHS 2 % (21-51); MONO 7 % (1-9); NRBC 1 % (0-0); SEGS 88 % (42-75)
[2019-11-10 07:55] LABS: ANISOCYTOSIS OCCASIONAL
[2019-11-10 07:56] LABS: HYPOCHROM OCCASIONAL; MICROCYTOSIS OCCASIONAL; POIKILOCYTOSIS 1+; POLYCHROM OCCASIONAL
[2019-11-10 07:57] LABS: BURR CELLS OCCASIONAL; OVALOCYTES OCCASIONAL; SCHISTOCYTES OCCASIONAL
[2019-11-10] MEDS: NORVASC PO SCH (10:21)
[2019-11-10] MEDS: CATAPRES PO SCH ×2 (10:21→20:27)
[2019-11-10] MEDS: COZAAR PO SCH (10:21)
[2019-11-10] MEDS: GLUCOSAMINE 500 MG/CHONDROITIN 400 MG PO SCH (10:21)
[2019-11-10] MEDS: COREG PO SCH ×2 (10:21→20:27)
[2019-11-10] MEDS: ALDACTONE PO SCH ×2 (10:21→20:28)
[2019-11-10] MEDS: FOLIC ACID PO SCH (10:21)
[2019-11-10] MEDS: PATIENT'S OWN MED PO SCH (10:32)
--- NOTE | 2019-11-10 12:25 | Diag Imaging Result Doc PS360 ---
EXAM: CHEST-PORTABLE INDICATION: dyspnea TECHNIQUE: One view COMPARISON: 11/07/2019 FINDINGS: Inspiration is suboptimal. The central vasculature appears mildly prominent. This is probably a combination of mild pulmonary venous congestion and venous crowding due to low lung volumes. No other new consolidation is identified. There is cardiomegaly. IMPRESSION: Lower lung volumes and mildly prominent central vasculature suggesting mild pulmonary venous congestion. Electronically signed by Arik Tsang 11/10/2019 12:23 PM
--- NOTE | 2019-11-10 16:58 | PROGRESS NOTE ---
DATE: 11/10/2019 SUBJECTIVE: Patient notes that she is feeling tremendously better today. She is starting to have an appetite. She states that her breathing is a little bit improved. OBJECTIVE: Vital Signs: Temperature 97.5, pulse 73, respiratory rate 18, BP 159/76, and sat 96%. Still on Ventimask. However, her color is improving. Her speech is much improved. Her air movement is improved. HEENT: Normocephalic. Neck: Supple. Cardiovascular: Regular rate. Lungs: Chest decreased but improved air movement. Minimal wheezing. Abdomen: Soft, obese, and nondistended. Extremities: Moves all extremities. ASSESSMENT: 1. Acute hypoxic respiratory failure. 2. Anemia. Improved hemoglobin and hematocrit 8 and 27 after unit transfusion 3. Chronic renal failure stable. 4. Type 2 diabetes. PLAN: We will continue patient in hospital. Continue antibiotics, oxygen, and breathing treatments. cc: Evin Dutta MD MTDD
[2019-11-11] MEDS: DUONEB (A & A) INH SCH ×6 (03:39→22:34)
[2019-11-11] MEDS: HUMALOG (PARKWAY) SUBQ SCH ×4 (06:44→21:25)
[2019-11-11] MEDS: ALDACTONE PO SCH ×2 (10:00→20:18)
[2019-11-11] MEDS: GLUCOSAMINE 500 MG/CHONDROITIN 400 MG PO SCH (10:04)
[2019-11-11] MEDS: CATAPRES PO SCH ×2 (10:04→20:18)
[2019-11-11] MEDS: NORVASC PO SCH (10:04)
[2019-11-11] MEDS: COZAAR PO SCH (10:04)
[2019-11-11] MEDS: FOLIC ACID PO SCH (10:04)
[2019-11-11] MEDS: SOLU-MEDROL IV SCH ×3 (10:05→22:03)
[2019-11-11] MEDS: SYNTHROID PO SCH (10:05)
[2019-11-11] MEDS: PRILOSEC PO SCH (10:05)
[2019-11-11] MEDS: COREG PO SCH ×2 (10:05→20:18)
[2019-11-11] MEDS: PATIENT'S OWN MED PO SCH (12:09)
--- NOTE | 2019-11-11 12:40 | PROGRESS NOTE ---
DATE: 11/11/2019 SUBJECTIVE: Patient notes she feels a lot better this morning. She is still having some shortness of breath and coughing, still having difficulty getting to the restroom secondary to her fatigue. PHYSICAL EXAMINATION: Vital Signs: Temperature 97.5 degrees, pulse 78, respiratory rate 18, blood pressure 160/76, saturation 98% on 3 L which is an improvement. She no longer is on Ventimask. HEENT: Normocephalic. Neck: Supple. Cardiovascular: Regular rate. No murmurs. Chest: Although decreased breath sounds bilaterally, actually improved from admission. Decreased wheezing from admission, better air movement. Abdomen: Soft, obese, nondistended. Extremities: Moves all extremities. No edema. Neurologic: No focal neurologic changes. ASSESSMENT: 1. Hypoxic respiratory failure, improving. She is weaning her oxygen. 2. Anemia of chronic disease. Hemoglobin and hematocrit is actually stable at 8 and 27 after a unit of blood. 3. Chronic renal failure. 4. Diabetes with hyperglycemia. PLAN: We are going to continue the patient in the hospital. Continue Solu-Medrol, oxygen, breathing treatments, and will follow. cc: Evin Dutta MD
[2019-11-12] MEDS: DUONEB (A & A) INH SCH ×6 (02:44→22:49)
[2019-11-12 05:58] LABS: HEMATOCRIT 28.2 % (37.0-47.0); HEMOGLOBIN 8.3 g/dL (12.0-16.0); MCHC 29.4 g/dL (33-37); MCV 88.4 FL (81-99); MPV 8.9 FL (7.4-10.4); RBC 3.19 XMIL (4.2-5.4); RDW 15.9 % (11.5-14.5); WBC 9.01 X1000 (4.8-10.8)
[2019-11-12 05:59] LABS: ALBUMIN 3.1 g/dL (3.5-5.0); CALCIUM 8.7 mg/dL (8.8-10.2); CREATININE 1.4 mg/dL (0.5-0.9); POTASSIUM 5.4 mmol/L (3.5-5.1); TOTAL BILIRUBIN 0.4 mg/dL (0.20-1.00); TOTAL PROTEIN 6.3 g/dL (6.3-8.3)
[2019-11-12] MEDS: HUMALOG (PARKWAY) SUBQ SCH ×4 (06:39→21:38)
[2019-11-12] MEDS: SOLU-MEDROL IV SCH ×2 (06:39→18:58)
[2019-11-12] MEDS: SYNTHROID PO SCH (06:39)
[2019-11-12] MEDS: PRILOSEC PO SCH (06:39)
--- NOTE | 2019-11-12 07:27 | Diag Imaging Result Doc PS360 ---
EXAM: CHEST-PORTABLE - 11/12/2019 HISTORY: dyspnea TECHNIQUE: Portable chest COMPARISON: 11/10/2019 FINDINGS: Inspiration is mildly shallow similar to prior. There are cardiomegaly and mild prominence of central vascular markings similar to prior. There is no dense consolidation, pleural effusion, or pneumothorax identified. IMPRESSION: Stable exam compared to prior. Electronically signed by Brennan Corbett 11/12/2019 7:24 AM
[2019-11-12] MEDS: AMARYL PO SCH (09:41)
[2019-11-12] MEDS: COZAAR PO SCH (09:41)
[2019-11-12] MEDS: GLUCOSAMINE 500 MG/CHONDROITIN 400 MG PO SCH (09:41)
[2019-11-12] MEDS: CATAPRES PO SCH ×2 (09:42→21:03)
[2019-11-12] MEDS: ALDACTONE PO SCH ×2 (09:42→21:02)
[2019-11-12] MEDS: COREG PO SCH ×2 (09:42→21:03)
[2019-11-12] MEDS: NORVASC PO SCH (09:42)
[2019-11-12] MEDS: FOLIC ACID PO SCH (09:42)
[2019-11-12] MEDS: PATIENT'S OWN MED PO SCH (09:52)
--- NOTE | 2019-11-12 22:46 | PROGRESS NOTE ---
DATE: 11/12/2019 SUBJECTIVE: Patient notes that she is feeling tremendously better. Cough is improved. Shortness of breath improved. Denies any fevers, chills. Denies cough, congestion. OBJECTIVE: Vital signs: Temperature 97.4 degrees, pulse 57, respiratory rate 18, BP 162/74, sat 96% on 3 L. General: Patient is an obese female who is in minimal respiratory distress much improved from admission. HEENT: Normocephalic. Neck: Supple. Cardiovascular: Regular rate. Chest: Decreased breath sounds bilaterally, although equal and improved. No wheezing. No crackles. Abdomen: Soft, obese, nondistended. Extremities: Moves all extremities. ASSESSMENT: 1. Acute hypoxic respiratory failure. Continues to improve. 2. Anemia, stable, after transfusion. 3. Hyperkalemia. The patient actually is on Aldactone. We are going to stop this. 4. Diabetes. 5. Chronic kidney disease, stable. PLAN: We are going to continue patient in the hospital, wean Solu-Medrol, continue oxygen. If her potassium is improved, hopefully she can transition to rehab. cc: Evin Dutta MD
[2019-11-13] MEDS: DUONEB (A & A) INH SCH ×6 (02:31→22:58)
[2019-11-13] MEDS: SOLU-MEDROL IV SCH (05:53)
[2019-11-13] MEDS: SYNTHROID PO SCH (06:05)
[2019-11-13] MEDS: PRILOSEC PO SCH (06:05)
[2019-11-13] MEDS: HUMALOG (PARKWAY) SUBQ SCH ×4 (06:26→21:00)
[2019-11-13] MEDS ORDERED: SOLU-MEDROL IV SCH (07:01)
[2019-11-13 07:02] LABS: HEMOGLOBIN 8.7 g/dL (12.0-16.0)
[2019-11-13 07:15] LABS: HEMATOCRIT 29.8 % (37.0-47.0); MCH 25.9 PG (27-31); MCHC 29.2 g/dL (33-37); MCV 88.7 FL (81-99); MPV 8.9 FL (7.4-10.4); RBC 3.36 XMIL (4.2-5.4); RDW 16.1 % (11.5-14.5); WBC 6.98 X1000 (4.8-10.8)
[2019-11-13 07:33] LABS: ALBUMIN 2.9 g/dL (3.5-5.0); CALCIUM 8.4 mg/dL (8.8-10.2); CREATININE 1.5 mg/dL (0.5-0.9); POTASSIUM 4.7 mmol/L (3.5-5.1); TOTAL BILIRUBIN 0.5 mg/dL (0.20-1.00); TOTAL PROTEIN 6.1 g/dL (6.3-8.3)
[2019-11-13] MEDS: AMARYL PO SCH (10:10)
[2019-11-13] MEDS: ALDACTONE PO SCH ×2 (10:10→20:50)
[2019-11-13] MEDS: COZAAR PO SCH (10:10)
[2019-11-13] MEDS: CATAPRES PO SCH ×2 (10:10→20:50)
[2019-11-13] MEDS: GLUCOSAMINE 500 MG/CHONDROITIN 400 MG PO SCH (10:11)
[2019-11-13] MEDS: FOLIC ACID PO SCH (10:11)
[2019-11-13] MEDS: COREG PO SCH ×2 (10:11→20:50)
[2019-11-13] MEDS: NORVASC PO SCH (10:11)
[2019-11-13] MEDS: PREDNISONE PO SCH ×2 (10:11→20:50)
[2019-11-13] MEDS: PATIENT'S OWN MED PO SCH (10:12)
[2019-11-14] MEDS ORDERED: TYLENOL PO PRN (01:54)
[2019-11-14] MEDS: DUONEB (A & A) INH SCH ×3 (03:15→11:26)
[2019-11-14] MEDS: HUMALOG (PARKWAY) SUBQ SCH ×2 (06:48→11:11)
[2019-11-14] MEDS: PRILOSEC PO SCH (06:48)
[2019-11-14] MEDS: SYNTHROID PO SCH (06:48)
--- NOTE | 2019-11-14 08:53 | PROGRESS NOTE ---
DATE: 11/13/2019 SUBJECTIVE: Patient notes she is feeling a lot better. Denies fevers, chills, cough or congestion. She states her short of breath is severe at times, having difficulty ambulating. PHYSICAL: Vital signs: Temp of 97.6. General: Patient is a morbidly obese female who is in minimal respiratory distress. She is pleasant. HEENT: Normocephalic. Neck: Supple. Cardiovascular: Regular rate. Chest: Much improved air movement. No wheezing currently. No crackles. Abdomen: Soft, obese. Extremities: moves all extremities well ASSESSMENT: 1. Acute hypoxic respiratory failure. 2. Anemia. Status post transfusion. 3. Hyperkalemia, resolved after decrease of her Aldactone to 12.5. 4. Diabetes. 5. Hypothermia. 6. PLAN: Hopefully home If she tolerates ambulating. cc: Evin Dutta MD MTDD
[2019-11-14] MEDS ORDERED: PREDNISONE PO SCH (09:00)
[2019-11-14] MEDS: NORVASC PO SCH (09:17)
[2019-11-14] MEDS: COZAAR PO SCH (09:17)
[2019-11-14] MEDS: FOLIC ACID PO SCH (09:17)
[2019-11-14] MEDS: AMARYL PO SCH (09:17)
[2019-11-14] MEDS: CATAPRES PO SCH (09:18)
[2019-11-14] MEDS: GLUCOSAMINE 500 MG/CHONDROITIN 400 MG PO SCH (09:18)
[2019-11-14] MEDS: COREG PO SCH (09:18)
[2019-11-14] MEDS: ALDACTONE PO SCH (09:18)
--- NOTE | 2019-11-14 10:00 | DISCHARGE SUMMARY ---
ADMISSION DATE: 11/07/2019 DISCHARGE DATE: 11/14/2019 DIAGNOSES: 1. Diabetes mellitus type 2 with hypoglycemia. 2. Hypothermia with a rectal temperature of 94 degrees on arrival, resolved. 3. Acute respiratory failure. 4. Chronic kidney disease. 5. Diastolic heart failure. 6. History of atrial fibrillation. 7. Hyperkalemia, resolved. DIAGNOSTICS: 1. CT of the head revealed no hemorrhage, chronic ischemic changes with old lacunar infarcts. 2. Chest x-ray 11/07/2019 revealed cardiomegaly. Lungs are well expanded. Heart is enlarged. Vessels are not distended. 3. Chest x-ray 11/10/2019, lower lung volumes and mildly prominent central vasculature suggesting mild pulmonary venous congestion. No new consolidation is identified. 4. On 11/12/2019, chest x-ray, cardiomegaly and mild prominence of central vascular markings similar to prior. No dense consolidation, pleural effusion or pneumothorax identified. 5. Microbiology, blood cultures revealed no growth after 5 days. HOSPITAL COURSE: Ms. Lazcano presented to the emergency room via EMS after being found unresponsive by a family member. On EMS arrival, it is documented that her blood sugar was 36 and she had a room air saturation of 85%. She received D5 normal saline in the emergency room. Blood sugars increased and have remained in the 100 to 300 range for which she was covered with sliding scale insulin as well as Amaryl restarted. She was hypothermic on arrival. After warming, temperature has remained 97 to 98 degrees. In regards to her hypoxic respiratory failure, O2 saturations have remained it looks like 95 to 100% on 2 L nasal cannula. Creatinine has remained 1.2 to 1.5, with her baseline over the last 2 years being 1.5 to 2. She does have anemia of chronic disease. Hemoglobin and hematocrit dropped to 6.7 and 23. She was transfused 2 units of packed cells and she has remained at 8 and 27 today. Today, the patient states that she is feeling much better. She is having difficulty ambulating. Thankfully, she is ready to be discharged to rehab. DISCHARGE VITAL SIGNS: Blood pressure is 177/70, with a heart rate of 64, respirations 20, temperature 97.5 degrees, with O2 saturations 95 to 100% on 2 L nasal cannula. PHYSICAL EXAMINATION: General: This is a 69-year-old, morbidly obese female who is sitting up in the bed, in no distress. Eyes: Pupils are equal, round, react to light. HEENT: Head is normocephalic, atraumatic. Mucous membranes are moist. Neck is supple with trachea midline. Cardiovascular: Regular rate and rhythm. S1 and S2 are appreciated. Breath sounds are clear with no increased work of breathing noted. Abdomen is soft, nontender, nondistended, with bowel sounds in all 4 quadrants. Extremities: She has bilateral lower extremity edema that is just above her knee, down. Calves are nontender. Neurologic: She is alert and oriented. DISCHARGE MEDICATIONS: 1. B12 sublingual 5000 mcg daily. 2. DuoNebs q.4-6 hours p.r.n. wheezing. 3. Tylenol 650 p.o. q.6 hours p.r.n. 4. Spironolactone 25 mg p.o. b.i.d. 5. Omeprazole 40 mg p.o. daily. 6. Cozaar 50 mg p.o. daily. 7. Levothyroxine 75 mcg p.o. daily. 8. Glucosamine/chondroitin 1 tablet daily. 9. Amaryl 4 mg p.o. daily. 10. Folic acid 1 mg p.o. daily. 11. Clonidine 0.1 p.o. b.i.d. 12. Carvedilol 12.5 p.o. b.i.d. 13. Biotin 1 p.o. daily. 14. Norvasc 10 mg p.o. daily. She is being discharged and transferred to [facility] in stable condition. TIME SPENT: This is a greater than 30 minute discharge. Dictated by ZONIA Blair for Evin Dutta MD cc: ZONIA Blair MD Bhavna Gowda, MD
[2019-11-14] MEDS: PATIENT'S OWN MED PO SCH (10:09)
[2019-11-14 11:57] VITALS: BP 153/64
--- NOTE | 2019-11-15 15:09 | PROVIDER DOCUMENTATION ---
This chart was entered by Shayy Grimm Scribe, acting as scribe for Morales Mills MD. HPI-General Adult - General Chief Complaint: Low Blood Sugar Stated Complaint: unresponsive Time Seen by Provider: 11/07/19 17:52 Source: EMS Allergies/Adverse Reactions: Patient Allergies Allergy/AdvReac Type Severity Reaction Status Date / Time No Known Allergies Allergy Verified 11/07/19 17:56 Home Medications: Home Medication List Medication Instructions Recorded Confirmed Last Taken Type Glimepiride 4 mg PO DAILY 02/02/17 11/07/19 09/11/19 History Losartan [Cozaar] 50 mg PO DAILY 02/02/17 11/07/19 09/11/19 History Carvedilol [Coreg] 12.5 mg PO BID 30 Days #60 tab 09/28/18 11/07/19 09/11/19 Rx Levothyroxine [Synthroid] 75 microgm PO DAILY@0700 30 Days 09/28/18 11/07/19 09/11/19 Rx #30 tab Folic Acid 1 mg PO DAILY 10/25/19 11/07/19 Unknown History Omeprazole 40 mg PO DAILY@0700 10/25/19 11/08/19 Unknown History Biotin [Aleksandar Biotin] 10,000 mcg PO DAILY 11/07/19 11/07/19 Unknown History Glucosam/Chond-MSM 2/C/D3/Jesús 1 tab PO DAILY 11/07/19 11/07/19 Unknown History [Zhqlrspcxv-Quxvundemln-ECR Tab] Spironolactone 25 mg PO BID 11/07/19 11/07/19 Unknown History Amlodipine Besylate 10 mg PO DAILY 11/08/19 11/08/19 Unknown History Clonidine HCl 0.1 mg PO BID 11/08/19 11/08/19 Unknown History Cyanocobalamin/Cobamamide [B-12 5,000 mcg PO DAILY 11/08/19 11/08/19 Unknown History 5,000 Mcg Sublingual Tab] Acetaminophen [Tylenol] 650 mg PO Q6H PRN PRN tab 11/14/19 Unknown Rx Albuterol 2.5MG/Ipratrop 0.5MG 3 ml INH Q4-6H PRN PRN neb 11/14/19 Unknown Rx [Duoneb (A & A)] - History of Present Illness -Gen Adult Nature of Presenting Problems: Patient is a 69 year old female who presents to the ED via EMS with low blood sugar and low O2 sat. EMS states patient was found unresponsive by family. EMS states patient's FSBS was 36 and O2 sat was 85% on room air. History of COPD and diabetes. Patient is awake, alert and oriented to person, place and time. Patient reports her PCP recently took her off of 2 daily medications but she can not remember what they are called. 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) Timing: reports: gone now Context/Activities at Onset: reports: light activity Associated Symptoms: reports: other (AMS - unresponsive) Similar Symptoms Previously?: No Recently seen or treated by another doctor?: Yes (e) Review of Systems - Adult - REVIEW OF SYSTEMS - ADULT Constitutional: reports: no symptoms reported Eyes: reports: no symptoms reported Ears, Nose, Mouth & Throat: reports: no symptoms reported Cardiovascular: reports: no symptoms reported Respiratory: reports: no symptoms reported Gastrointestinal: reports: no symptoms reported Genitourinary: reports: no symptoms reported Musculoskeletal: reports: no symptoms reported Integumentary: reports: no symptoms reported Neurological: reports: no symptoms reported Psychiatric: reports: no symptoms reported Endocrine: reports: no symptoms reported Hematologic/Lymphatic: reports: no symptoms reported Allergic/Immunologic: reports: no symptoms reported All Other Systems: Reviewed and Negative Past History - Adult - PAST MEDICAL HISTORY-ADULT Review of Records: reports: Old Records Reviewed, Nursing Assessment Review, Medications Reviewed, Social history reviewed & non-contributory. Major Childhood Illnesses: reports: denies history Cardiovascular: reports: CHF, HTN, hyperlipidemia Respiratory: reports: COPD, sleep apnea Gastrointestinal: reports: GERD Obstetrical/Gynecological: reports: denies history Genitourinary: reports: denies history Musculoskeletal: reports: denies history Neurological: reports: CVA Endocrine/Immune: reports: Diabetes, thyroid disorder Other Conditions: reports: denies history - PRIOR SURGERIES/PROCEDURES Surgical/Procedure History: reports: reviewed, not pertinent - IMMUNIZATION STATUS Childhood Immunizations: See Nurse Assessment Flu Vaccine: See Nurse Assessment - FAMILY HISTORY Family History: reviewed, not pertinent - SOCIAL HISTORY Smoking: denies Substance Use: denies Living Situation: alone Physical Exam-General - PHYSICAL EXAM-ADULT Initial Vital Signs Reviewed: Yes - CONSTITUTIONAL General Appearance: alert, no apparent distress - HEAD, EARS, NOSE, MOUTH & THROAT HENMT: normocephalic/atraumatic, moist mucous membranes - RESPIRATORY Respiratory: chest non-tender, lungs clear, normal breath sounds - CARDIOVASCULAR Cardiovascular: regular rate, rhythm, no gallop, no murmur - GASTROINTESTINAL (ABDOMEN) Abdominal Exam: normal bowel sounds, non tender, soft - MUSCULOSKELETAL Extremity: normal inspection - SKIN Integumentary: normal color, normal turgor, warm/dry - NEUROLOGIC Neurologic: grossly normal - PSYCHIATRIC Psych/Mental Status: normal mood/affect, normal thought content, normal thought process, oriented x 3 Progress - PLAN OF CARE/RESULTS Progress/Plan/Lab Results: Vital Signs - 8 hr 11/07/19 17:47 11/07/19 17:52 Pulse Rate 73 Respiratory Rate 24 Blood Pressure 185/87 O2 Sat by Pulse Oximetry 100 100 Orders Category Date Time Status CHEST-1 VIEW [RAD] Stat Exams 11/07/19 18:00 Ordered CBC WITH DIFF [HEME] Stat Lab 11/07/19 18:00 Ordered COMPREHENSIVE METABOLIC PANEL [CHEM] Stat Lab 11/07/19 18:00 Uncollected MAGNESIUM [CHEM] Stat Lab 11/07/19 18:00 Uncollected PRO B-NATRIURETIC PEPTIDE Stat Lab 11/07/19 18:00 Uncollected PROTIME WITH INR [COAG] Stat Lab 11/07/19 18:00 Uncollected TROPONIN T HIGH SENSITIVITY Stat Lab 11/07/19 18:00 Uncollected URINALYSIS W/POSS RFLX CULT [URINALYSIS] Stat Lab 11/07/19 18:00 Uncollected EKG [EKG] Stat Ther 11/07/19 18:00 Ordered Result Diagrams: 11/13/19 06:37 11/13/19 06:37 Departure - Departure Date of Disposition Decision: 11/07/19 Time of Disposition Decision: 22:50 DIAGNOSIS: Hypothermia, Hypoglycemia Disposition: [facility] 03 Certified Medical Emergency: Emergent Condition: Stable - Critical Care Note This patient required my direct & personal management of CC.: Yes Total Time (mins): 55 Critical Care Statement: This patient required my direct personal management to treat or rule out processes, the absence of which, could potentiallly result in sudden, clinically significant life or limb threatening deterioration. Attestation - Physician/ MELVIN Attestation The physician spent face to face time with patient:: Yes Advanced Practice Provider documentation review:: Supervising physician onsite and consulted in the evaluation and care of this patient. The physician did have a face to face encounter with the patient. This chart was documented by the indicated scribe, (Shayy Grimm Scribe) and accurately reflects the services I performed and decisions made by me, Morales Mills MD, as attested by the provider's signature.
--- NOTE | 2019-11-15 18:30 | DISCHARGE SUMMARY ---
ADMISSION DATE: 11/07/2019 DISCHARGE DATE: 11/14/2019 ADDENDUM: Patient seen and examined by myself. Full note dictated and discussed with nurse practitioner. Patient presented to the hospital with acute hypoxic respiratory failure. She actually at one point required a Venti mask and has weaned down to 2 L. She has continued to improve. Her physical is improved. She also was anemic and transfused 2 units. Potassium is elevated, is currently back to normal. We are going to discharge her to rehab. cc: Evin Dutta MD
== END 2019-11-14 15:14 | DRG 637 ==
LOC: P.ED 17:47 → SUATTDRO 21:57 → P.MEDSURG 21:57
PROVIDERS: ATTEND Family Medicine

== ENCOUNTER 2020-01-24 14:21 | Inpatient (IN) ==
[2020-01-24] MEDS ORDERED: NS 1,000 ML IV ONE ×2 (14:24→15:50)
[2020-01-24] MEDS ORDERED: ZOFRAN IV ONE (14:24)
--- NOTE | 2020-01-24 14:53 | EKG Report ---
Test Performed on : 01/24/2020 2:43:18 PM Test Reason : ER Blood Pressure : / mmHG Vent. Rate : 063 BPM Atrial Rate : 063 BPM P-R Int : 166 ms QRS Dur : 088 ms QT Int : 446 ms P-R-T Axes : 028 -09 047 degrees QTc Int : 456 ms Sinus rhythm. with premature atrial complexes. Septal infarct , age undetermined Abnormal ECG When compared with ECG of 02-DEC-2019 06:33, Sinus rhythm. has replaced Atrial fibrillation. Unconfirmed Result
[2020-01-24 15:26] LABS: BASO# 0.02 X1000 (0.0-0.2); BASO% 0.3 % (0.0-0.8); EOS# 0.15 X1000 (0.0-0.7); HEMATOCRIT 38.8 % (37.0-47.0); HEMOGLOBIN 12.8 g/dL (12.0-16.0); IMM GRAN# 0.03 X1000 (0.0-0.04); IMM GRAN% 0.4 % (0.0-0.5); LYMPH# 1.81 X1000 (1.2-3.4); LYMPH% 24.4 % (20.5-51.1); MCH 26.9 PG (27-31); MCV 81.7 FL (81-99); MONO# 0.79 X1000 (0.11-0.59); MONO% 10.6 % (1.7-9.3); MPV 10.6 FL (7.4-10.4); NEUT# 4.62 X1000 (1.4-6.5); NEUT% 62.3 % (42.2-75.2); PLT 164 X1000 (130-400); RBC 4.75 XMIL (4.2-5.4); RDW 20.1 % (11.5-14.5); WBC 7.42 X1000 (4.8-10.8)
[2020-01-24 15:29] LABS: ALBUMIN 3.6 g/dL (3.5-5.0); CALCIUM 9.9 mg/dL (8.8-10.2); CREATININE 1.6 mg/dL (0.5-0.9); POTASSIUM 4.1 mmol/L (3.5-5.1); TOTAL BILIRUBIN 0.4 mg/dL (0.20-1.00); TOTAL PROTEIN 7.5 g/dL (6.3-8.3)
[2020-01-24 16:30] LABS: URINE SOURCE CLEAN CATCH
--- NOTE | 2020-01-24 16:31 | PROVIDER DOCUMENTATION ---
This chart was entered by Nisha Padilla Scribe, acting as scribe for Susan Carter MD. HPI-Abdominal Pain/GI Problem - General Stated Complaint: n/v/d Time Seen by Provider: 01/24/20 14:24 Source: patient, EMS (first response) Allergies/Adverse Reactions: Patient Allergies Allergy/AdvReac Type Severity Reaction Status Date / Time No Known Allergies Allergy Verified 12/01/19 10:03 Home Medications: Home Medication List Medication Instructions Recorded Confirmed Last Taken Type Losartan [Cozaar] 50 mg PO DAILY 02/02/17 12/01/19 11/30/19 07:00 History Carvedilol [Coreg] 12.5 mg PO BID 30 Days #60 tab 09/28/18 12/01/19 11/30/19 19:00 Rx Folic Acid 1 mg PO DAILY 10/25/19 12/01/19 11/30/19 07:00 History Omeprazole 40 mg PO DAILY 10/25/19 12/01/19 11/30/19 07:00 History Biotin [Aleksandar Biotin] 10,000 mcg PO DAILY 11/07/19 12/01/19 11/30/19 07:00 History Spironolactone 25 mg PO BID 11/07/19 12/01/19 11/30/19 07:00 History Amlodipine Besylate 10 mg PO DAILY 11/08/19 12/01/19 11/30/19 07:00 History Clonidine HCl 0.1 mg PO BID 11/08/19 12/01/19 11/30/19 19:00 History Acetaminophen [Tylenol] 650 mg PO Q6H PRN PRN tab 11/14/19 12/01/19 Unknown Rx Albuterol 2.5MG/Ipratrop 0.5MG 3 ml INH Q4-6H PRN PRN neb 11/14/19 12/01/19 Unknown Rx [Duoneb (A & A)] Cyanocobalamin S.l. [Vitamin B-12] 2 tab SUBLINGUAL DAILY 12/01/19 12/01/19 11/30/19 07:00 History Glucosamine/MSM/Chondroitin A 1 tab PO DAILY 12/01/19 12/01/19 11/30/19 07:00 History [Glucosamine Chondroit MSM Tab] Ipratropium [place] Neb [Atrovent 1 inh PO Q4-6H PRN PRN 12/01/19 12/01/19 Unknown History Neb] Levothyroxine [Synthroid] 75 microgm PO DAILY 12/01/19 12/01/19 11/30/19 04:00 History Furosemide [Lasix] 40 mg PO DAILY tab 12/07/19 Unknown Rx Ciprofloxacin HCl [Cipro] 500 mg PO BID #20 tab 01/24/20 Unknown Rx Ondansetron Odt [Zofran 8Mg Odt] 8 mg PO Q8H PRN PRN #12 tab 01/24/20 Unknown Rx - History of Present Illness-ABD Nature of Presenting Problems: 69 yowf presents to the ed via ems (first response) for c/o 4 days of intermittent n/v/d. pt reports she was recently released from rehab due to a fall and is back at home now. family is concerned with abd issues and told pt to come to ed Abdominal Pain Onset Location: reports: generalized abdomen Quality of Pain: reports: cramping Severity in ED: reports: mild Onset/Duration: reports: 4 days ago Timing: reports: still present, intermittent Activities at Onset: reports: light activity Exposure to sick contacts?: Yes (was in rehab recently) Modifying Factors: improves with: nothing Associated Symptoms: reports: diarrhea, nausea, vomiting. denies: back/neck pain, chest pain, EENT symptoms, fever/chills, headaches, shortness of breath Last BM: this morning Dark Stools Present?: reports: none noticed Rectal Bleeding: reports: none # of Diarrhea Episodes: 3 Rectal Pain: reports: none # of Vomiting Episodes: 4 Bruising or Bleeding Gums?: No Similar Symptoms Previously?: Yes Recently seen or treated by another doctor?: Yes Review of Systems - Adult - REVIEW OF SYSTEMS - ADULT Constitutional: denies: chills, fever Eyes: reports: no symptoms reported Ears, Nose, Mouth & Throat: reports: no symptoms reported Cardiovascular: denies: chest pain, palpitations Respiratory: denies: cough, shortness of breath, wheezing Gastrointestinal: reports: see HPI, abdominal pain, diarrhea, nausea, poor appetite, vomiting Genitourinary: reports: no symptoms reported Musculoskeletal: denies: back pain, neck pain Integumentary: reports: no symptoms reported Neurological: denies: dizziness/vertigo, headache/migraines Psychiatric: reports: no symptoms reported Endocrine: reports: no symptoms reported Hematologic/Lymphatic: reports: no symptoms reported Allergic/Immunologic: reports: no symptoms reported All Other Systems: Reviewed and Negative Past History - Adult - PAST MEDICAL HISTORY-ADULT Review of Records: reports: Old Records Reviewed, Nursing Assessment Review, Medications Reviewed, Social history reviewed & non-contributory. Major Childhood Illnesses: reports: denies history Cardiovascular: reports: A-Fib, CHF, HTN, hyperlipidemia Respiratory: reports: denies history Gastrointestinal: reports: GERD Obstetrical/Gynecological: reports: denies history Genitourinary: reports: kidney disease Musculoskeletal: reports: denies history Neurological: reports: CVA, TIA Endocrine/Immune: reports: Diabetes, thyroid disorder Diabetes Type: Type 2 Diabetes controlled by:: Diet Other Conditions: reports: denies history - PRIOR SURGERIES/PROCEDURES Surgical/Procedure History: reports: reviewed, not pertinent - IMMUNIZATION STATUS Childhood Immunizations: See Nurse Assessment Flu Vaccine: See Nurse Assessment - FAMILY HISTORY Family History: reviewed, not pertinent - SOCIAL HISTORY Smoking: denies Substance Use: denies Alcohol Use Frequency: never Living Situation: family Physical Exam-General - PHYSICAL EXAM-ADULT Initial Vital Signs Reviewed: Yes - CONSTITUTIONAL General Appearance: appears well, alert, no apparent distress, obese - EYES Eyes: PERRL/EOMI, pink conjunctivae - HEAD, EARS, NOSE, MOUTH & THROAT HENMT: other (OP exam deferred due to covid pandemic, pt not c/o resp issues and has mask in place) - NECK Neck: non-tender, full range of motion, normal inspection - RESPIRATORY Respiratory: chest non-tender, lungs clear, normal breath sounds - CARDIOVASCULAR Cardiovascular: normal peripheral pulses, regular rate, rhythm - CHEST (BREASTS) Chest/Breast: deferred - GASTROINTESTINAL (ABDOMEN) Abdominal Exam: normal bowel sounds, non tender, soft, other (c/o nausea on exam) - GENITOURINARY Female Genitalia/Pelvic Exam: deferred Rectal Exam: deferred Hemoccult Exam: deferred - MUSCULOSKELETAL Back Exam: no CVA tenderness, no vertebral tenderness Extremity: normal range of motion, non-tender - SKIN Integumentary: normal color, normal turgor, warm/dry - NEUROLOGIC Neurologic: grossly normal - PSYCHIATRIC Psych/Mental Status: normal mood/affect, normal thought content, normal thought process, oriented x 3 Progress - PLAN OF CARE/RESULTS Progress/Plan/Lab Results: Orders Category Date Time Status Saline Loc NOW Care 01/24/20 14:23 Active CBC WITH DIFF [HEME] Stat Lab 01/24/20 14:23 Uncollected COMPREHENSIVE METABOLIC PANEL [CHEM] Stat Lab 01/24/20 14:23 Uncollected Ns 1000 ml IV Bolus X1 Med 01/24/20 14:24 Ordered 0.9% Sodium Chloride Inj [Ns] 1,000 ml IV 999 mls/hr Result Diagrams: 01/24/20 15:06 01/24/20 15:06 - REASSESSMENT Reassessment #1 Time Reassessed: 16:00 Status: improving (patient was given options to be admitted, she felt better and wanted to go home, no pain or nausea at this time) Reassessment #2 Time Reassessed: 17:45 Status: unchanged (family was concerned about patient going home,) - EKG 1 Time of EKG reading by physician:: 14:43 EKG Interpretation (*Must complete 3 of following elements*): Abnormal Rate: 63 Rhythm: sinus rhythm w/pac [place]: normal QRS: normal [place] Interval: normal ST Wave: normal - CONSULTS/PCP/HOSPITALIST Notification #1 *Consult/PCP/Hospitalist*: Dr Dutta Time Discussed: 17:56 Consult Disposition: Admit Departure - Departure Date of Disposition Decision: 01/24/20 Time of Disposition Decision: 16:37 DIAGNOSIS: Weakness, Dehydration UTI (urinary tract infection) Qualifiers: Urinary tract infection type: site unspecified Hematuria presence: without hematuria Qualified Code(s): N39.0 - Urinary tract infection, site not specified Disposition: ADMITTED INPATIENT 09 Certified Medical Emergency: Emergent Condition: Good Prescriptions: Ciprofloxacin HCl [Cipro] 500 mg PO BID #20 tab Prescription Printed Ondansetron Odt [Zofran 8Mg Odt] 8 mg PO Q8H PRN PRN #12 tab PRN Reason: Nausea Prescription Printed Referrals and Follow-Ups: Shanon Haq MD [Primary Care Provider] - Work 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 The physician did have a face to face encounter with the patient. This chart was documented by the indicated scribe, (Nisha Padilla Scribe) and accurately reflects the services I performed and decisions made by me, Susan Carter MD, as attested by the provider's signature.
[2020-01-24 16:33] LABS: BILIRUBIN URINE SMALL (NEGATIVE); BLOOD URINE TRACE (NEGATIVE); COLOR YELLOW; GLUCOSE URINE NEGATIVE (NEGATIVE); KETONE URINE 10 mg/dL (NEGATIVE); LEUKOCYTES URINE LARGE (NEGATIVE); NITRITE URINE NEGATIVE (NEGATIVE); PH URINE 7.5; PROTEIN URINE 50 mg/dL (NEGATIVE); SP GRAVITY URINE 1.018; TURBIDITY URINE HAZY (CLEAR); UROBILINOGEN URINE 2 mg/dL (NORMAL)
[2020-01-24 16:34] LABS: UR EPITHELIAL CELLS <10 /HPF (<10); URINE BACTERIA 4+ /HPF; URINE RBC <10 /HPF (<10); URINE WBC TNTC /HPF (<10)
[2020-01-24] MEDS ORDERED: ROCEPHIN 1 GM in NS 50 ML IV ONE (16:37)
[2020-01-24] MEDS ORDERED: NS 1,000 ML IV SCH (18:15)
[2020-01-24] MEDS: ZOSYN 3.375 GM in NS 50 ML IV SCH (20:07)
--- NOTE | 2020-01-25 00:52 | HISTORY AND PHYSICAL ---
CHIEF COMPLAINT: Nausea, vomiting. HISTORY OF PRESENT ILLNESS: The patient is a 69-year-old female that presented to the emergency department stating that she has been nauseated for the past 4 or 5 days. She has had vomiting, diarrhea. Notes she has had a decreased oral intake. She has recently released from rehab where she is there due to a fall. She denies any fevers, chills. Denies any hematemesis, hematochezia, melena. ALLERGIES: No known drug allergies. MEDICATIONS: Losartan 50, Coreg 12.5, spironolactone 25 b.i.d., amlodipine 10, clonidine 0.1 b.i.d., Synthroid 75. REVIEW OF SYSTEMS: Positive abdominal pain, nausea, vomiting, decreased oral intake, decreased urinary output. Says she has had a couple of episodes of diarrhea, several episodes of vomiting. Denies hematemesis, hematochezia or melena. Denies hemoptysis, fevers, chills, cough, congestion or other upper respiratory type symptoms. States she has been tired, fatigued. Has not been able to carry out her activities of daily living. Denies any chest pain, cough, shortness of breath, swelling in her lower extremities. Does not check her weight on any regular basis. Has a very poor appetite. PAST MEDICAL HISTORY: Atrial fibrillation, congestive heart failure, hypertension, hyperlipidemia, chronic reflux, history of kidney disease, history of CVAs with several TIAs, history of diabetes, hypothyroidism. FAMILY HISTORY: Noncontributory. SOCIAL HISTORY: Does not smoke, drink or use illicit substances. PHYSICAL EXAMINATION: VITAL SIGNS: Reviewed. She is afebrile. Blood pressure stable. Respiratory 20. GENERAL: Patient is awake, pleasant. She is in no respiratory distress. Overweight female who has dry, cracked lips, who appears generally weak and fatigued. HEENT: Normocephalic. NECK: Supple. CARDIOVASCULAR: Regular rate. No murmurs. CHEST: Clear, nonlabored. No wheezing. ABDOMEN: Soft, nondistended, nontender. She does complain of nausea. EXTREMITIES: Moves all extremities. No edema. NEUROLOGIC: No changes. She is awake, alert, oriented. LABORATORIES: CBC normal. CMP with a bicarbonate of 16, creatinine of 1.6 with a baseline around 2. ASSESSMENT: 1. Nausea, vomiting. 2. Abdominal pain. 3. Myalgias. 4. Dehydration. 5. Generalized weakness. 6. Adult failure to thrive. 7. Chronic renal failure. 8. Hypertension. 9. Hypothyroidism. PLAN: We are going to admit patient to the hospital. IV fluids, Zofran, PPIs and we will follow. cc: Evin Dutta MD MTD
[2020-01-25] MEDS: ZOSYN 3.375 GM in NS 50 ML IV SCH ×4 (00:53→18:18)
[2020-01-25 06:04] LABS: HEMATOCRIT 35.9 % (37.0-47.0); HEMOGLOBIN 11.4 g/dL (12.0-16.0); MCH 26.3 PG (27-31); MCHC 31.8 g/dL (33-37); MCV 82.7 FL (81-99); MPV 9.9 FL (7.4-10.4); RBC 4.34 XMIL (4.2-5.4); WBC 6.64 X1000 (4.8-10.8)
[2020-01-25 06:35] LABS: CALCIUM 9.2 mg/dL (8.8-10.2); CREATININE 1.5 mg/dL (0.5-0.9); MAGNESIUM 1.5 mg/dL (1.5-2.7); POTASSIUM 3.7 mmol/L (3.5-5.1); TOTAL BILIRUBIN 0.5 mg/dL (0.20-1.00); TOTAL PROTEIN 6.5 g/dL (6.3-8.3)
[2020-01-25] MEDS: ZOFRAN IV PRN (08:36)
[2020-01-25] MEDS ORDERED: NS 1,000 ML IV SCH (08:46)
[2020-01-25] MEDS ORDERED: TYLENOL PO PRN (08:47)
[2020-01-25] MEDS ORDERED: DUONEB (A & A) INH PRN (08:47)
[2020-01-25] MEDS: CELEXA PO SCH (10:24)
[2020-01-25] MEDS: FOLIC ACID PO SCH (10:24)
[2020-01-25] MEDS: NORVASC PO SCH (10:24)
[2020-01-25] MEDS: AMARYL PO SCH (10:24)
--- NOTE | 2020-01-25 21:50 | PROGRESS NOTE ---
DATE: 01/25/2020 SUBJECTIVE: The patient notes she is starting to feel better. Denies any fevers or chills. States she is drinking a little bit better. OBJECTIVE: Temperature 97.5 degrees, pulse 58, respiratory rate 18, BP 149/79.General: The patient is awake, pleasant. No distress. HEENT: Normocephalic. Neck supple. Cardiovascular: Regular rate. Chest clear, nonlabored. Abdomen is soft. Extremities: Moves all extremities. ASSESSMENT: 1. Urinary tract infection. 2. Nausea and vomiting. 3. Abdominal pain. 4. Myalgias. 5. Dehydration. 6. Generalized weakness. 7. Adult failure to thrive. 8. Hypertension. PLAN: We are going to continue the patient in the hospital. Continue treatment of volume depletion. Continue antibiotics until culture results, and we will follow. Hopefully home over the next 1 or 2 days. cc: Evin Dutta MD
[2020-01-26] MEDS: ZOSYN 3.375 GM in NS 50 ML IV SCH ×4 (00:31→17:54)
[2020-01-26] MEDS: SYNTHROID PO SCH (05:16)
[2020-01-26] MEDS: PRILOSEC PO SCH (05:16)
[2020-01-26] MEDS: NORVASC PO SCH (08:47)
[2020-01-26] MEDS: AMARYL PO SCH (08:47)
[2020-01-26] MEDS: CELEXA PO SCH (08:48)
[2020-01-26] MEDS: FOLIC ACID PO SCH (08:48)
--- NOTE | 2020-01-26 10:15 | PROGRESS NOTE ---
DATE: 01/26/2020 SUBJECTIVE: Patient has no new complaints. She states that she is eating fine although that does not appear to be the case from staff observations. She has not been out of bed since getting admitted to the hospital. PHYSICAL EXAMINATION: Vital signs: Temperature 98 degrees, pulse 54, respiratory rate 18, blood pressure 137/77. General: Patient is awake, pleasant. She is in no respiratory distress. HEENT: Normocephalic. Neck: Supple. Cardiovascular: Regular rate. Chest: Clear. Abdomen: Soft, obese, nondistended. Extremities: Moves all extremities. ASSESSMENT: 1. Urinary tract infection. Continue Zosyn. Awaiting final culture results. 2. Generalized adult failure to thrive with generalized weakness. We will continue to attempt to educate on the importance of ambulation, sitting in the chair, etc. 3. Nausea appears resolved. 4. Abdominal pain. 5. Myalgias. PLAN: We are going to continue patient in the hospital today until we get final culture results. We will adjust antibiotics and will follow. cc: Evin Dutta MD
[2020-01-26 16:30] LABS: BE -9.2 mmoll (-3.0-3.0); BLOOD TYPE ARTERIAL; HCO3-(ACT) 17.7 mmoll (20.0-26.0); METHB 1.1 % (0.0-1.5); O2(CT) 16.4 mL/dL (15.0-23.0); O2HB 96.3 % (95.0-99.0); PCO2(98.6) 26 mmHg (35-45); PO2(98.6) 113 mmHg (60-100); SAMPLE BLOOD; SAO2 99.2 % (95.0-100.0); pH(98.6) 7.36 (7.35-7.45)
[2020-01-26 16:32] LABS: ALLEN TEST YES; MODALITY ROOM AIR
[2020-01-26] MEDS ORDERED: D50W SYRINGE ONE (16:47)
[2020-01-26 16:50] LABS: BASO# 0.02 X1000 (0.0-0.2); BASO% 0.2 % (0.0-0.8); HEMATOCRIT 36.9 % (37.0-47.0); HEMOGLOBIN 12.7 g/dL (12.0-16.0); MCH 27.5 PG (27-31); MCHC 34.4 g/dL (33-37); PLT 175 X1000 (130-400); RBC 4.61 XMIL (4.2-5.4); RDW 20.4 % (11.5-14.5); WBC 10.35 X1000 (4.8-10.8)
[2020-01-26 16:58] LABS: ALBUMIN 3.3 g/dL (3.5-5.0); CALCIUM 9.1 mg/dL (8.8-10.2); CREATININE 1.2 mg/dL (0.5-0.9); MAGNESIUM 1.4 mg/dL (1.5-2.7); POTASSIUM 3.2 mmol/L (3.5-5.1); TOTAL BILIRUBIN 0.5 mg/dL (0.20-1.00); TOTAL PROTEIN 6.7 g/dL (6.3-8.3)
--- NOTE | 2020-01-26 17:03 | Diag Imaging Result Doc PS360 ---
EXAM: CHEST-PORTABLE HISTORY: pt condition deteriorating TECHNIQUE: Single view COMPARISON: 12/05/2019 FINDINGS: Poor inspiratory effort. The heart is enlarged. No pulmonary edema. Increased density in the left base behind the heart. No pleural effusions identified. IMPRESSION: Cardiomegaly with an infiltrate in the left lower lobe Electronically signed by Bassam Field 01/26/2020 5:01 PM
[2020-01-26 17:27] LABS: LYMPHS 34 % (21-51); MONO 7 % (1-9); SEGS 59 % (42-75)
[2020-01-26 17:29] LABS: BURR CELLS 3+; LARGE PLATELETS 2+; POIKILOCYTOSIS 3+
[2020-01-27] MEDS: ZOSYN 3.375 GM in NS 50 ML IV SCH ×4 (00:37→19:24)
[2020-01-27] MEDS: PRILOSEC PO SCH (06:35)
[2020-01-27] MEDS: SYNTHROID PO SCH (06:39)
[2020-01-27] MEDS: ZOFRAN IV PRN ×2 (06:51→20:57)
[2020-01-27] MEDS ORDERED: D50W SYRINGE IV ONE ×2 (08:45→16:49)
[2020-01-27] MEDS: D5 1/2 NS 1,000 ML IV SCH ×2 (09:05→18:32)
[2020-01-27] MEDS: FOLIC ACID PO SCH (11:47)
[2020-01-27] MEDS: CELEXA PO SCH (11:47)
[2020-01-27] MEDS: NORVASC PO SCH (11:47)
[2020-01-27] MEDS: TYLENOL PO PRN ×2 (13:55→23:50)
--- NOTE | 2020-01-27 14:17 | PROGRESS NOTE ---
DATE: 01/27/2020 SUBJECTIVE: The patient, this morning, is awake and alert. She is in no distress. Answers questions appropriately. However, a couple of hours later, she became confused again, disoriented, somnolent, and her blood sugar again was quite low. PHYSICAL EXAMINATION: Temperature 97, pulse 63, respiratory rate 18, BP 123/86 upon my seeing her in the a.m. HEENT: Normocephalic. Neck: Supple. Cardiovascular: Regular rate. Chest: Clear and unlabored. Abdomen: Soft, nondistended. Extremities: Moves all extremities. ASSESSMENT: 1. Diabetes with hypoglycemia. Patient has been on glipizide. This has been held. She is not eating well. She had a significantly low blood sugar yesterday. Again, this morning, her blood sugar dropped after intravenous infiltrated and she was no longer able to get D5. We currently have an in place and we will restart her D5 half-normal. We have obviously held her glipizide as well. 2. Urinary tract infection with Klebsiella, sensitive to Zosyn. 3. Sepsis secondary to urinary tract infection causing metabolic encephalopathy, hypoglycemia. 4. Dehydration. 5. Hypokalemia. 6. Adult failure to thrive with generalized weakness. PLAN: We are going to continue patient in the hospital. Continue to treat symptomatically. Expect she will be in the hospital 2 to 3 more days. cc: Evin Dutta MD [facility]
[2020-01-27] MEDS: D10W 1,000 ML IV SCH (17:22)
[2020-01-28] MEDS: ZOSYN 3.375 GM in NS 50 ML IV SCH ×5 (00:27→23:43)
[2020-01-28] MEDS: D10W 1,000 ML IV SCH ×4 (00:32→20:15)
[2020-01-28] MEDS: SYNTHROID PO SCH (05:21)
[2020-01-28] MEDS: PRILOSEC PO SCH (05:21)
[2020-01-28] MEDS ORDERED: NS 50 ML ONE (06:06)
[2020-01-28 08:36] LABS: HEMATOCRIT 34.3 % (37.0-47.0); HEMOGLOBIN 10.9 g/dL (12.0-16.0); MCH 25.9 PG (27-31); MCHC 31.8 g/dL (33-37); MCV 81.5 FL (81-99); MPV 10.4 FL (7.4-10.4); RBC 4.21 XMIL (4.2-5.4); RDW 20.2 % (11.5-14.5); WBC 5.34 X1000 (4.8-10.8)
[2020-01-28 08:45] LABS: ALBUMIN 2.9 g/dL (3.5-5.0); CALCIUM 8.6 mg/dL (8.8-10.2); CREATININE 1.5 mg/dL (0.5-0.9); MAGNESIUM 1.2 mg/dL (1.5-2.7); POTASSIUM 3.3 mmol/L (3.5-5.1); TOTAL BILIRUBIN 0.4 mg/dL (0.20-1.00)
[2020-01-28] MEDS ORDERED: KLOR-CON PO ONE (08:46)
[2020-01-28] MEDS: CELEXA PO SCH (09:04)
[2020-01-28] MEDS: NORVASC PO SCH (09:05)
[2020-01-28] MEDS: FOLIC ACID PO SCH (09:05)
[2020-01-28] MEDS: D5 1/2 NS 1,000 ML IV SCH ×2 (09:07→14:04)
--- NOTE | 2020-01-28 14:04 | PROGRESS NOTE ---
DATE: 01/28/2020 SUBJECTIVE: Patient this morning states she is feeling okay. She is still fatigued. She is still not eating. OBJECTIVE: Vital Signs: On physical examination, vital signs are reviewed. Temperature 97.8 degrees, pulse 63, respiratory rate 18, BP 103/86. General: Patient is morbidly obese. She is lying on the bed. She is awake, alert. She is able to answer questions. HEENT: Normocephalic. Neck: Supple. Cardiovascular: Regular rate. No murmurs. Chest: Clear and nonlabored. Abdomen: Soft, nondistended. Extremities: Moves all extremities, although generalized weakness. ASSESSMENT: 1. Klebsiella urinary tract infection. 2. Sepsis. 3. Hypokalemia. 4. Chronic renal failure. 5. Diabetes with severe hypoglycemia over the weekend with several episodes of blood sugars between 20 and 50. Currently, she is still on D 10; this morning's blood sugar was 77. She has not been on glipizide for over 36 hours, but she is also not eating very well. 6. Adult failure to thrive with generalized weakness. 7. Hypertension. Blood pressures are still low, although they are starting to elevate. We are going to continue to hold her clonidine, Coreg, Aldactone and losartan. 8. Urinary retention. Currently has Barrett catheter. PLAN: We are going to continue Zosyn, continue D 10 until her blood sugars start to elevate, and then we will stop and begin adjusting her blood sugar medications. We will continue therapy. Expect she will be in the hospital a couple more days. cc: Evin Dutta MD
[2020-01-28] MEDS: IMODIUM PO PRN (22:14)
[2020-01-28] MEDS: TYLENOL PO PRN (23:43)
[2020-01-29] MEDS ORDERED: CALMOSEPTINE OINTMENT TOP PRN (00:42)
[2020-01-29] MEDS: PRILOSEC PO SCH ×2 (04:39→05:31)
[2020-01-29] MEDS: SYNTHROID PO SCH ×2 (04:40→05:30)
[2020-01-29] MEDS: D5 1/2 NS 1,000 ML IV SCH (05:29)
[2020-01-29] MEDS: ZOSYN 3.375 GM in NS 50 ML IV SCH ×3 (06:10→17:23)
[2020-01-29] MEDS: D10W 1,000 ML IV SCH ×4 (08:48→20:06)
[2020-01-29] MEDS: NORVASC PO SCH (08:49)
[2020-01-29] MEDS: CELEXA PO SCH (08:49)
[2020-01-29] MEDS: FOLIC ACID PO SCH (08:50)
[2020-01-29 14:29] LABS: BASO# 0.02 X1000 (0.0-0.2); BASO% 0.4 % (0.0-0.8); EOS# 0.39 X1000 (0.0-0.7); EOS% 7.1 % (0.0-10.0); HEMATOCRIT 35.4 % (37.0-47.0); HEMOGLOBIN 11.8 g/dL (12.0-16.0); IMM GRAN# 0.03 X1000 (0.0-0.04); IMM GRAN% 0.5 % (0.0-0.5); LYMPH# 1.67 X1000 (1.2-3.4); LYMPH% 30.2 % (20.5-51.1); MCH 26.5 PG (27-31); MCHC 33.3 g/dL (33-37); MCV 79.6 FL (81-99); MONO# 0.63 X1000 (0.11-0.59); MONO% 11.4 % (1.7-9.3); MPV 9.9 FL (7.4-10.4); NEUT# 2.79 X1000 (1.4-6.5); NEUT% 50.4 % (42.2-75.2); PLT 133 X1000 (130-400); RBC 4.45 XMIL (4.2-5.4); RDW 20.1 % (11.5-14.5); WBC 5.53 X1000 (4.8-10.8)
--- NOTE | 2020-01-29 14:38 | PROGRESS NOTE ---
DATE: 01/29/2020 SUBJECTIVE: The patient reports she is feeling okay. She reports eating a little bit better she said. OBJECTIVE: Vital Signs: Temperature 97.9 degrees, heart rate 67, respiratory rate 18, blood pressure 113/71, O2 saturation 100% on room. General: This is a 69-year-old, female, lying in bed in no acute distress, morbidly obese. Cardiovascular: S1, S2 heard. No murmurs, gallops, or rubs. Regular rate and rhythm. Respiratory: Clear bilaterally to auscultation. No work of breathing or using accessory muscles. Abdomen: Soft. Nontender to palpation. Bowel sounds present. No organomegaly. Extremities: No clubbing, cyanosis, or edema. Peripheral pulses present in both legs. Neurological: The patient is alert and oriented x3. Moves all 4 extremities. General weakness noted. LABORATORY DATA: No labs from today. ASSESSMENT AND PLAN: 1. Diabetes with severe hyperglycemia. The patient has been, for last 3 days, on D10. We are planning to decrease the D10 rate from 150 mL/h to 50. We have encouraged the patient to eat much. Will continue to check hemoglobin and hematocrit before meals and also at bedtime. 2. Hypertension. Blood pressure is normalizing. We are not providing any blood pressure medication. Will continue to monitor. 3. Urinary retention. The patient has Barrett catheter. 4. Chronic renal failure. Kidney function is at baseline. 5. Klebsiella urinary tract infection. Will continue the current antibiotics, in this case, Zosyn. 6. Disposition. This patient has blood sugar much better controlled. We can discharge this patient, and change antibiotics to oral. cc: Edinson De Leon MD
[2020-01-29 15:02] LABS: CALCIUM 8.6 mg/dL (8.8-10.2); CREATININE 1.4 mg/dL (0.5-0.9); POTASSIUM 3.3 mmol/L (3.5-5.1)
[2020-01-29] MEDS: IMODIUM PO PRN (22:18)
[2020-01-30] MEDS: ZOSYN 3.375 GM in NS 50 ML IV SCH ×2 (00:20→06:00)
[2020-01-30] MEDS: SYNTHROID PO SCH (05:04)
[2020-01-30] MEDS: PRILOSEC PO SCH (05:04)
[2020-01-30] MEDS: ZOFRAN IV PRN ×2 (05:15→22:40)
[2020-01-30 05:26] LABS: BASO# 0.03 X1000 (0.0-0.2); BASO% 0.5 % (0.0-0.8); EOS% 8.2 % (0.0-10.0); HEMATOCRIT 38.2 % (37.0-47.0); HEMOGLOBIN 12.7 g/dL (12.0-16.0); IMM GRAN# 0.05 X1000 (0.0-0.04); IMM GRAN% 0.8 % (0.0-0.5); LYMPH% 26.3 % (20.5-51.1); MCH 26.6 PG (27-31); MCHC 33.2 g/dL (33-37); MCV 79.9 FL (81-99); MONO% 11.5 % (1.7-9.3); MPV 10.3 FL (7.4-10.4); NEUT% 52.7 % (42.2-75.2); PLT 127 X1000 (130-400); RBC 4.78 XMIL (4.2-5.4); RDW 20.1 % (11.5-14.5); WBC 6.08 X1000 (4.8-10.8)
[2020-01-30 05:34] LABS: CALCIUM 9.1 mg/dL (8.8-10.2); CREATININE 1.4 mg/dL (0.5-0.9); POTASSIUM 3.3 mmol/L (3.5-5.1)
[2020-01-30] MEDS: CELEXA PO SCH (09:13)
[2020-01-30] MEDS: NORVASC PO SCH (09:13)
[2020-01-30] MEDS: FOLIC ACID PO SCH (09:14)
[2020-01-30] MEDS: KEFZOL 2 GM/D5W 2 GM/50 ML IVPB IV SCH ×2 (13:25→21:54)
--- NOTE | 2020-01-30 13:29 | PROGRESS NOTE ---
DATE: 01/30/2020 SUBJECTIVE: The patient reports that she is feeling okay but she is not eating like she is supposed to. She said that her appetite is not good today. OBJECTIVE: Vital Signs: Temperature 97.4 degrees, heart rate 64, respiratory rate 16, blood pressure 114/65, O2 saturation 98% on room air. General: This is a chronically ill-looking, morbidly obese, 69-year-old female, lying in bed, in no acute distress. Cardiovascular: S1, S2 heard. No murmurs, gallops, or rubs. Regular rate and rhythm. Respiratory: Clear bilaterally to auscultation. No work of breathing or using accessory muscles. Abdomen: Soft, nontender to palpation. Bowel sounds present. No organomegaly. Extremities: No clubbing, cyanosis, or edema. Peripheral pulses present in both legs. Neurological: The patient is alert and oriented x3. Moves 4 extremities. LABORATORY DATA: Reviewed. ASSESSMENT AND PLAN: 1. Diabetes with severe hyperglycemia. That condition is getting better. I want to stop D10 today. I have encouraged this patient again to eat much. She acknowledged understanding and she said she is going to do it. We will continue to check Accu-Cheks before meals and also at bedtime. 2. Hypertension. Blood pressure is normalizing. She is not receiving any blood pressure medication yet but considering that she is in the range of 130s and 110s, I prefer to continue holding home medications. 3. Urinary retention. Patient has a Barrett catheter. 4. Klebsiella urinary tract infection. I will deescalate antibiotics from Zosyn to cefazolin and will change to cephalexin upon discharge. 5. Disposition. At this point, we will continue with the same management. We have encouraged patient to eat better. We have stopped D10 and we have consulted Physical Therapy to help her move around. cc: Edinson De Leon MD
[2020-01-30] MEDS: IMODIUM PO PRN (22:38)
[2020-01-30] MEDS: TYLENOL PO PRN (22:40)
[2020-01-31] MEDS: IMODIUM PO PRN (01:14)
[2020-01-31] MEDS: KEFZOL 2 GM/D5W 2 GM/50 ML IVPB IV SCH ×3 (05:12→21:09)
[2020-01-31] MEDS: SYNTHROID PO SCH (05:13)
[2020-01-31] MEDS: PRILOSEC PO SCH (05:45)
[2020-01-31 06:09] LABS: BASO# 0.01 X1000 (0.0-0.2); BASO% 0.2 % (0.0-0.8); EOS# 0.39 X1000 (0.0-0.7); EOS% 6.3 % (0.0-10.0); HEMATOCRIT 35.3 % (37.0-47.0); HEMOGLOBIN 11.6 g/dL (12.0-16.0); IMM GRAN# 0.02 X1000 (0.0-0.04); IMM GRAN% 0.3 % (0.0-0.5); LYMPH# 1.66 X1000 (1.2-3.4); LYMPH% 26.6 % (20.5-51.1); MCH 26.2 PG (27-31); MCHC 32.9 g/dL (33-37); MCV 79.7 FL (81-99); MONO# 0.82 X1000 (0.11-0.59); MONO% 13.2 % (1.7-9.3); MPV 9.8 FL (7.4-10.4); NEUT# 3.33 X1000 (1.4-6.5); NEUT% 53.4 % (42.2-75.2); PLT 122 X1000 (130-400); RBC 4.43 XMIL (4.2-5.4); RDW 20.1 % (11.5-14.5); WBC 6.23 X1000 (4.8-10.8)
[2020-01-31 06:13] LABS: CALCIUM 8.7 mg/dL (8.8-10.2); CREATININE 1.4 mg/dL (0.5-0.9); POTASSIUM 3.3 mmol/L (3.5-5.1)
[2020-01-31] MEDS: NORVASC PO SCH (09:12)
[2020-01-31] MEDS: CELEXA PO SCH (09:12)
[2020-01-31] MEDS: FOLIC ACID PO SCH (09:13)
[2020-01-31] MEDS ORDERED: KLOR-CON PO ONE (09:26)
[2020-01-31] MEDS ORDERED: SAMSCA PO ONE (10:00)
--- NOTE | 2020-01-31 11:58 | PROGRESS NOTE ---
DATE: 01/31/2020 SUBJECTIVE: Patient reports feeling fine. She was vomiting some this morning. Denies any other complaints. OBJECTIVE: Vital Signs: Temperature 97.5 degrees, heart rate 55, respiratory rate 17, blood pressure 132/71, O2 saturation 100% on 2 L nasal cannula. General examination: This is a chronically ill-looking, morbidly obese, 69-year-old female, lying in bed in no acute distress. Cardiovascular exam: S1 and S2 heard. No murmurs, gallops, or rubs. Regular rate and rhythm. Respiratory exam: Clear bilaterally to auscultation. No work of breathing or using accessory muscles. Abdomen: Soft, mildly distended, but nontender to palpation. Bowel sounds present. No organomegaly. Extremities: No clubbing, cyanosis, or edema. Peripheral pulses present in both legs. Neurological: Patient is alert and oriented x3. Moves 4 extremities. LABORATORY DATA: Reviewed. ASSESSMENT/PLAN: 1. Diabetes with severe hypoglycemia; that condition is getting better. She has been on D 10 for 3 day because she has been on long-acting oral hypoglycemic agent. At this point, her blood sugars are better. Continue to monitor. 2. Hypertension. Blood pressure is okay. I do not think at this point I am going to restart any blood pressure medication. 3. Urinary retention/ patient has a Barrett catheter. 4. Klebsiella urinary tract infection. We will continue with cefazolin. 5. Disposition: According to Physical Therapy report, she is profoundly weak, so she is going to rehabilitation. household worker is working with this patient. cc: Edinson De Leon MD
[2020-01-31] MEDS ORDERED: MAGNESIUM SULFATE 4 GM/S.W.I. 4 GM/100 ML IVPB IV ONE (16:18)
[2020-01-31] MEDS: ZOFRAN IV PRN (22:10)
[2020-02-01] MEDS: KEFZOL 2 GM/D5W 2 GM/50 ML IVPB IV SCH (03:44)
[2020-02-01 04:52] VITALS: BP 148/84
[2020-02-01 06:05] LABS: BASO# 0.02 X1000 (0.0-0.2); BASO% 0.3 % (0.0-0.8); EOS# 0.32 X1000 (0.0-0.7); EOS% 5.1 % (0.0-10.0); HEMATOCRIT 35.4 % (37.0-47.0); HEMOGLOBIN 11.8 g/dL (12.0-16.0); IMM GRAN# 0.02 X1000 (0.0-0.04); IMM GRAN% 0.3 % (0.0-0.5); LYMPH# 1.92 X1000 (1.2-3.4); LYMPH% 30.7 % (20.5-51.1); MCH 26.6 PG (27-31); MCHC 33.3 g/dL (33-37); MCV 79.7 FL (81-99); MONO# 1.01 X1000 (0.11-0.59); MONO% 16.1 % (1.7-9.3); MPV 10.3 FL (7.4-10.4); NEUT# 2.97 X1000 (1.4-6.5); NEUT% 47.5 % (42.2-75.2); PLT 131 X1000 (130-400); RBC 4.44 XMIL (4.2-5.4); RDW 20.6 % (11.5-14.5); WBC 6.26 X1000 (4.8-10.8)
[2020-02-01 06:07] LABS: CALCIUM 9.4 mg/dL (8.8-10.2); CREATININE 1.3 mg/dL (0.5-0.9); MAGNESIUM 2.1 mg/dL (1.5-2.7); POTASSIUM 3.5 mmol/L (3.5-5.1)
[2020-02-01] MEDS: PRILOSEC PO SCH (06:14)
[2020-02-01] MEDS: SYNTHROID PO SCH (06:14)
[2020-02-01] MEDS: NORVASC PO SCH (07:32)
[2020-02-01] MEDS: CELEXA PO SCH (07:32)
--- NOTE | 2020-02-04 14:17 | DISCHARGE SUMMARY ---
ADMISSION DATE: 01/28/2020 DISCHARGE DATE: 02/01/2020 DISCHARGE DIAGNOSES: 1. Diabetes with severe hypoglycemia, resolved. 2. Hypertension. 3. Urinary retention. 4. Klebsiella urinary tract infection. CONSULTATIONS: None. PROCEDURES: Chest x-ray showed cardiomegaly with an infiltrate in the left lower lobe. HOSPITAL COURSE: In brief, this is a 69-year-old, morbidly obese, female, who presented to the department complaining of nausea for the past 4 to 5 days, and has been vomiting. She has been using oral antidiabetic agents, and while she was here, treated for that condition, she has persistent hypoglycemia that we needed to place her 3 days on D10 normal saline. After that, she was eating better, she was feeling okay, her white count was okay, and all the electrolytes, including sodium and potassium normalized. There was a mild elevation of creatinine to 1.3, so she is going to be discharged to rehab. Plan from Social Work is to send this patient home. She is going to have a COVID test done in our private laboratory, and once we have the results of the COVID that is negative, she is going to be taking to a rehab facility. Everything has been arranged by social service liaison. DISCHARGE PHYSICAL EXAMINATION: Vital Signs: Temperature 97.7 degrees, heart rate 79, respiratory rate 18, blood pressure 148/84, O2 saturation 98% on room air. General: This is a 69- year-old, female, lying in bed in no acute distress. Cardiovascular: S1, S2 heard. No murmurs, gallops, or rubs. Regular rate and rhythm. Respiratory: Clear bilaterally to auscultation. No work of breathing or using accessory muscles. Abdomen: Soft, nontender to palpation. Bowel sounds present. No organomegaly. Extremities: No clubbing, cyanosis, or edema. Peripheral pulses present in both legs. Neurologic: The patient is alert and oriented x3. Moves all 4 extremities. DISCHARGE DISPOSITION: Initially home to self-care, and then she is going to rehab facility. DISCHARGE MEDICATIONS: 1. Januvia 50 mg 1 tablet p.o. daily. 2. Cephalexin 500 mg 1 tablet p.o. 3 times per day for a week. 3. Losartan 50 mg 1 tablet p.o. daily. 4. Omeprazole 40 mg 1 tablet p.o. daily. 5. Folic acid 1 tablet p.o. daily. 6. Spironolactone 25 mg 1 tablet p.o. twice daily. 7. Biotin 1000 mcg 1 tablet p.o. daily. 8. Amlodipine 10 mg 1 tablet p.o. daily. 9. Clonidine 0.1 mg 1 tablet p.o. daily as needed. 10. Tylenol as needed for pain. 11. DuoNeb every 4 to 6 hours as needed for shortness of breath. 12. Levothyroxine 75 mcg 1 tablet p.o. daily. 13. Citalopram 10 mg 1 tablet p.o. daily. 14. Nystatin 1 application topically daily. 15. Sucralfate 1 gram p.o. before meals and also at bedtime. 16. Carvedilol 12.5 mg 1 tablet p.o. daily. 17. She is supposed to stop glimepiride. TIME SPENT: Time discharging this patient was 36 minutes. cc: Edinson De Leon MD
== END 2020-02-01 07:40 | DRG 638 ==
LOC: SUPCPDRO → P.ED 14:21 → P.MEDSURG 19:40 → SUATTDRO 01-28 07:10
PROVIDERS: ATTEND Internal Medicine